=== PATIENT | male | born 1985 | race Caucasian/White ===

== ENCOUNTER → 2018-02-24 07:15 | Outpatient (CLI) | payer MEDICAID, SELFPAY ==
--- NOTE | 2018-02-24 10:25 | NEURO_ITS ---
NCS and/or EMG Patient Report Ordering Doctor: Uvaldo Edouard Chi DATE OF SERVICE: 02/24/18 This is a bilateral upper extremity nerve conduction study performed on this 32-year-old male with a history of numbness and tingling in both hands on the left side for several years. The patient is healthy otherwise. Bilateral upper extremity sensory and motor nerve conduction study was performed. The median motor and sensory distal latencies are mild to moderately prolonged somewhat worse on the left side which also demonstrates low amplitude. The amplitudes on the right side are preserved and conduction velocities are symmetrically preserved. The ulnar motor and sensory and radial sensory responses are normal. Median and ulnar F-wave latencies are unremarkable. Impression: this is an abnormal nerve conduction study of the bilateral upper extremities consistent with carpal tunnel syndrome bilaterally, mild on the ri ght, mild to moderate on the left. EMG testing was deferred due to typical electrophysiologic findings
== END ==
PROVIDERS: Family Provider Family Medicine Geriatric Medicine; PCP Family Medicine Geriatric Medicine; Visit Provider Family Medicine Geriatric Medicine
DX: R20.2 Paresthesia of skin (principal)
CPT/HCPCS: 95912

== ENCOUNTER → 2018-03-22 14:50 | Outpatient (CLI) | payer MEDICAID, SELFPAY ==
[2018-03-22 17:23] LABS: Absolute Lymphocyte Count 2.12 X10^3/ul (0.83-4.51); Absolute Neutrophil Count 4.8 X10^3/uL (2.0-7.7); Basophil# 0.02 X10^3/uL; Basophil% 0.3 % (0-1); Eosinophil# 0.26 X10^3/uL; Eosinophils% 3.3 % (0-5); Hematocrit 47.4 % (40-54); Hemoglobin 15.9 g/dl (13.0-16.5); Lymphocyte # 2.12 X10^3/ul (4.0); Lymphocyte % 26.9 % (19-41); Mean Corp Hgb Conc 33.5 g/gl (32-36); Mean Corpuscular Volume 89.4 fL (80-94); Mean Platelet Vol. 12.2 fl (6.2-12.0); Monocyte# 0.61 X10^3/uL; Monocyte% 7.8 % (0-10); Neutrophil # 4.84 X10^3/uL (2.7-7.7); Neutrophil % 61.4 % (47-70); Platelet Count 140 K/mm3 (150-450); RBC Distribution Width CV 12.7 % (11.6-14.6); RBC Distribution Width SD 41.8 fl (35.1-43.9); White Blood Count 7.9 K/mm3 (4.4-11.0)
[2018-03-22 17:24] LABS: POSITIVE COUNT NO; POSITIVE DIFFERENTIAL NO; POSITIVE MORPHOLOGY NO
[2018-03-22 17:37] LABS: ALB/GLOB Ratio 1.2 RATIO (0.9-2.4); AST(SGOT) 15 U/L (15-37); Alanine Aminotransfer ALT/SGPT 37 U/L (16-61); Albumin, Serum 4.2 g/dL (3.2-5.0); Alkaline Phosphatase 102 U/L (45-117); Anion Gap 11 (5-15); BUN 16 mg/dL (7-18); Chloride 105 mmol/L (98-107); Creatinine, Serum 1.07 mg/dL (0.70-1.30); EST Glomerular Filtration Rate 85 mL/min (>60); Est Glom Filt Rate - Afr Amer 103 mL/min (>60); Globulin 3.5 g/dL (2.2-4.2); Glucose 100 mg/dL (74-106); Potassium 3.9 mmol/L (3.5-5.1); Protein, Total 7.7 g/dL (6.4-8.2); Sodium Level 143 mmol/L (136-145); Thyroid Stim Hormone (TSH) 0.57 uIU/mL (0.358-3.74)
[2018-03-22 17:52] LABS: Vitamin D,25 Hydroxy 16.4 ng/mL (29.95-100.01)
== END ==
PROVIDERS: Family Provider Family Medicine Geriatric Medicine; PCP Family Medicine Geriatric Medicine; Visit Provider Family Medicine Geriatric Medicine
DX: E55.9 Vitamin D deficiency, unspecified (principal); R53.83 Other fatigue
CPT/HCPCS: 36415; 80053; 82306; 84443; 85025

== ENCOUNTER → 2018-06-29 16:46 | Outpatient (CLI) | payer MEDICAID, SELFPAY ==
[2016-10-17 14:09] VITALS: BMI 30.7
[2018-06-29 17:30] LABS: Absolute Lymphocyte Count 2.86 X10^3/ul (0.83-4.51); Absolute Neutrophil Count 3.2 X10^3/uL (2.0-7.7); Basophil# 0.03 X10^3/uL; Basophil% 0.4 % (0-1); Eosinophil# 0.28 X10^3/uL; Eosinophils% 4.1 % (0-5); Hematocrit 45.8 % (40-54); Hemoglobin 15.6 g/dl (13.0-16.5); Lymphocyte # 2.86 X10^3/ul (4.0); Lymphocyte % 41.7 % (19-41); Mean Corp Hgb Conc 34.1 g/gl (32-36); Mean Corpuscular Hgb 30.3 pg (27.0-32.0); Mean Corpuscular Volume 88.9 fL (80-94); Mean Platelet Vol. 10.9 fl (6.2-12.0); Monocyte# 0.44 X10^3/uL; Monocyte% 6.4 % (0-10); Neutrophil # 3.22 X10^3/uL (2.7-7.7); Platelet Count 154 K/mm3 (150-450); RBC Distribution Width CV 12.9 % (11.6-14.6); RBC Distribution Width SD 41.9 fl (35.1-43.9); Red Blood Count 5.15 M/mm3 (4.6-6.2); White Blood Count 6.9 K/mm3 (4.4-11.0)
[2018-06-29 17:35] LABS: POSITIVE COUNT NO; POSITIVE DIFFERENTIAL NO; POSITIVE MORPHOLOGY NO
[2018-06-29 18:08] LABS: Anion Gap 9 (5-15); BUN 10 mg/dL (7-18); BUN/Creat Ratio 11.4 RATIO (10-20); Chloride 107 mmol/L (98-107); Creatinine, Serum 0.88 mg/dL (0.70-1.30); EST Glomerular Filtration Rate 107 mL/min (>60); Est Glom Filt Rate - Afr Amer 130 mL/min (>60); Glucose 76 mg/dL (74-106); Sodium Level 142 mmol/L (136-145)
== END ==
PROVIDERS: Family Provider Family Medicine Geriatric Medicine; PCP Family Medicine Geriatric Medicine; Referring Provider Family Medicine Geriatric Medicine; Visit Provider Family Medicine Geriatric Medicine
DX: I10 Essential (primary) hypertension (principal); R00.0 Tachycardia, unspecified
CPT/HCPCS: 36415; 80048; 85025

== ENCOUNTER → 2019-03-23 13:02 | Outpatient (CLI) | payer MEDICAID, SELFPAY ==
[2019-03-23 17:20] LABS: Absolute Lymphocyte Count 2.54 X10^3/uL (0.83-4.51); Absolute Neutrophil Count 4.6 X10^3/uL (2.0-7.7); Basophil# 0.04 X10^3/uL; Basophil% 0.5 % (0-1); Hematocrit 47.6 % (40-54); Hemoglobin 15.9 g/dL (13.0-16.5); Lymphocyte # 2.54 X10^3/ul (4.0); Lymphocyte % 30.6 % (19-41); Mean Corp Hgb Conc 33.4 g/dL (32-36); Mean Corpuscular Hgb 29.7 pg (27.0-32.0); Mean Corpuscular Volume 88.8 fL (80-94); Mean Platelet Vol. 12.4 fl (6.2-12.0); Monocyte% 7.2 % (0-10); NRBC Flagged by Analyzer 0 % (0-5); Neutrophil # 4.57 X10^3/uL (2.7-7.7); Platelet Count 160 K/mm3 (150-450); RBC Distribution Width SD 41.9 fl (35.1-43.9); Red Blood Count 5.36 M/mm3 (4.6-6.2); White Blood Count 8.3 K/mm3 (4.4-11.0)
[2019-03-23 17:52] LABS: ALB/GLOB Ratio 1.2 RATIO (0.9-2.4); AST(SGOT) 22 U/L (15-37); Alanine Aminotransfer ALT/SGPT 42 U/L (16-61); Albumin, Serum 4.3 g/dL (3.2-5.0); Alkaline Phosphatase 93 U/L (45-117); Anion Gap 8 (5-15); BUN 11 mg/dL (7-18); BUN/Creat Ratio 11.7 RATIO (10-20); Calcium,Total 9.4 mg/dL (8.5-10.1); Chloride 106 mmol/L (98-107); Creatinine, Serum 0.94 mg/dL (0.70-1.30); EST Glomerular Filtration Rate 98 mL/min (>60); Est Glom Filt Rate - Afr Amer 119 mL/min (>60); Globulin 3.5 g/dL (2.2-4.2); Glucose 86 mg/dL (74-106); Potassium 4.1 mmol/L (3.5-5.1); Protein, Total 7.8 g/dL (6.4-8.2); Sodium Level 141 mmol/L (136-145)
== END ==
PROVIDERS: Family Provider Family Medicine Geriatric Medicine; PCP Family Medicine Geriatric Medicine; Visit Provider Family Medicine Geriatric Medicine
DX: I10 Essential (primary) hypertension (principal)
CPT/HCPCS: 36415; 80053; 84443; 85025

== ENCOUNTER → 2019-06-17 10:55 | Outpatient (CLI) | payer MEDICAID, SELFPAY ==
[2016-10-17 14:09] VITALS: BMI 30.7
[2019-06-17 12:17] LABS: Absolute Neutrophil Count 4.6 X10^3/uL (2.0-7.7); Basophil# 0.05 X10^3/uL; Basophil% 0.6 % (0-1); Eosinophil# 0.49 X10^3/uL; Eosinophils% 6.1 % (0-5); Hematocrit 50.1 % (40-54); Hemoglobin 16.7 g/dL (13.0-16.5); Lymphocyte % 27.2 % (19-41); Mean Corp Hgb Conc 33.3 g/dL (32-36); Mean Corpuscular Hgb 29.7 pg (27.0-32.0); Mean Corpuscular Volume 89.1 fL (80-94); Mean Platelet Vol. 11.6 fl (6.2-12.0); Monocyte% 8.7 % (0-10); NRBC Flagged by Analyzer 0 % (0-5); Neutrophil % 56.8 % (47-70); Platelet Count 169 K/mm3 (150-450); RBC Distribution Width CV 12.4 % (11.6-14.6); RBC Distribution Width SD 40.3 fl (35.1-43.9); Red Blood Count 5.62 M/mm3 (4.6-6.2); White Blood Count 8.1 K/mm3 (4.4-11.0)
[2019-06-17 12:40] LABS: ALB/GLOB Ratio 1.2 RATIO (0.9-2.4); AST(SGOT) 23 U/L (15-37); Alanine Aminotransfer ALT/SGPT 58 U/L (16-61); Albumin, Serum 4.1 g/dL (3.2-5.0); Alkaline Phosphatase 94 U/L (45-117); Anion Gap 5 (5-15); BUN 13 mg/dL (7-18); BUN/Creat Ratio 12.6 RATIO (10-20); Calcium,Total 9.4 mg/dL (8.5-10.1); Chloride 108 mmol/L (98-107); Creatinine, Serum 1.03 mg/dL (0.70-1.30); EST Glomerular Filtration Rate 89 mL/min (>60); Est Glom Filt Rate - Afr Amer 107 mL/min (>60); Globulin 3.5 g/dL (2.2-4.2); Glucose 103 mg/dL (74-106); Potassium 4.2 mmol/L (3.5-5.1); Protein, Total 7.6 g/dL (6.4-8.2); Sodium Level 140 mmol/L (136-145); Thyroid Stim Hormone (TSH) 0.56 uIU/mL (0.358-3.74)
== END ==
LOC: POLAB3 10:57
PROVIDERS: PCP Family Medicine Geriatric Medicine; Visit Provider Family Medicine Geriatric Medicine
DX: R53.83 Other fatigue (principal)
CPT/HCPCS: 36415; 80053; 84443; 85025

== ENCOUNTER → 2019-12-08 17:57 | Outpatient (CLI) | payer MEDICAID, SELFPAY | PROVIDERS: PCP Family Medicine Geriatric Medicine | DX: Z20.828 Contact with and (suspected) exposure to other viral communicable diseases (principal) | CPT/HCPCS: 87635; G2023; U0003 ==

== ENCOUNTER → 2020-03-26 13:24 | Outpatient (CLI) | payer MEDICAID, SELFPAY ==
[2016-10-17 14:09] VITALS: BMI 30.7
[2020-03-26 17:00] LABS: Absolute Lymphocyte Count 2.74 X10^3/uL (0.83-4.51); Absolute Neutrophil Count 5.4 X10^3/uL (2.0-7.7); Basophil# 0.08 X10^3/uL; Basophil% 0.9 % (0-1); Eosinophil# 0.24 X10^3/uL; Eosinophils% 2.6 % (0-5); Hematocrit 49.1 % (40-54); Hemoglobin 15.9 g/dL (13.0-16.5); Lymphocyte # 2.74 X10^3/ul (4.0); Lymphocyte % 29.9 % (19-41); Mean Corp Hgb Conc 32.4 g/dL (32-36); Mean Corpuscular Hgb 29.4 pg (27.0-32.0); Mean Corpuscular Volume 90.8 fL (80-94); Mean Platelet Vol. 11.9 fl (6.2-12.0); Monocyte% 7.6 % (0-10); NRBC Flagged by Analyzer 0 % (0-5); Neutrophil # 5.37 X10^3/uL (2.7-7.7); Neutrophil % 58.7 % (47-70); Platelet Count 223 K/mm3 (150-450); RBC Distribution Width CV 12.3 % (11.6-14.6); RBC Distribution Width SD 40.8 fl (35.1-43.9); Red Blood Count 5.41 M/mm3 (4.6-6.2); White Blood Count 9.2 K/mm3 (4.4-11.0)
[2020-03-26 17:21] LABS: ALB/GLOB Ratio 1.2 RATIO (0.9-2.4); AST(SGOT) 31 U/L (15-37); Alanine Aminotransfer ALT/SGPT 65 U/L (16-61); Albumin, Serum 4.4 g/dL (3.2-5.0); Alkaline Phosphatase 106 U/L (45-117); Anion Gap 9 (5-15); BUN 22 mg/dL (7-18); BUN/Creat Ratio 15.6 RATIO (10-20); Calcium,Total 9.7 mg/dL (8.5-10.1); Chloride 103 mmol/L (98-107); Creatinine, Serum 1.41 mg/dL (0.70-1.30); EST Glomerular Filtration Rate 61 mL/min (>60); Est Glom Filt Rate - Afr Amer 74 mL/min (>60); Globulin 3.8 g/dL (2.2-4.2); Glucose 75 mg/dL (74-106); Potassium 3.7 mmol/L (3.5-5.1); Protein, Total 8.2 g/dL (6.4-8.2); Sodium Level 136 mmol/L (136-145); Thyroid Stim Hormone (TSH) 0.49 uIU/mL (0.358-3.74)
== END ==
PROVIDERS: PCP Family Medicine Geriatric Medicine; Visit Provider Family Medicine Geriatric Medicine
DX: R53.83 Other fatigue (principal)
CPT/HCPCS: 36415; 80053; 84443; 85025

== ENCOUNTER → 2020-03-27 10:20 | Outpatient (CLI) | payer MEDICAID, SELFPAY | PROVIDERS: PCP Family Medicine Geriatric Medicine; Referring Provider Family Medicine Geriatric Medicine; Visit Provider Family Medicine Geriatric Medicine | DX: R06.89 Other abnormalities of breathing (principal) | CPT/HCPCS: 87633; 87635; C9803; U0003 ==

== ENCOUNTER 2020-04-16 18:07 | Emergency (ER) | payer MEDICAID, SELFPAY ==
[2020-04-16 18:08] VITALS: BP 129/81; PULSE 97; RESP 16; TEMP 36.6; O2SAT 99; BMI 31.9
--- NOTE | 2020-04-16 18:52 | CT_ITS ---
HISTORY: FELL 2 DAYS AGO AND HIT HEAD, NO LOC COMPARISON: None. TECHNIQUE: Helical CT axial images are obtained from the base of skull through the vertex without IV contrast. Multiplanar reconstruction. A radiation dose optimization technique was used for this scan. # of images incl. paperwork: [id number] FINDINGS: BRAIN: No parenchymal hemorrhage, infarct, intra-axial mass, mass effect, or midline shift. No abnormal extra-axial fluid collections. VENTRICLES: Ventricles are normal in size and configuration. No hydrocephalus. CALVARIUM: Bone windows show no skull fracture or calvarial lesions. PARANASAL SINUSES AND MASTOIDS: Visualized paranasal sinuses are clear. Mastoid air cells are clear. CT/Brain/Head without Contrast IMPRESSION: 1. Negative noncontrast CT examination of brain. Individualized dose optimization techniques were used for this CT. at 1958 Reported and signed by: Twin Marquez MD Electronically Signed: Twin Marquez MD at 19:57 EST Tel , Service support ,
--- NOTE | 2020-04-16 18:53 | ED.DCSUM_ITS ---
History of Present Illness Chief Complaint: Fall Informant: Patient, - - [facility] staff member Onset: Days Current Severity: Mild Maximum Severity: Mild Narrative: Patient presents after falling and striking his head 2 days ago. He lives in a nursing home. Staff member that is here with him today was not present at the time of his fall. He states he was on the porch visiting with a friend. He fell and struck the back of his head. He thinks he may have gotten dizzy but is not sure. He has had no nausea and vomiting. He states his head feels swimmy. - Past Medical History (1) Anxiety and depression Status: Chronic Past Medical History - Allergies and Home Meds Allergies/Adverse Reactions: Allergies No Known Allergies Allergy (Verified 04/16/20 18:10) Primary Care Physician: Uvaldo Edouard Chi, MD [Primary Care Provider] - [facility]: - - [facility] Smoking Status: Never smoker Review of Systems General: Denies: Chills, Fever Eyes: Denies: Visual changes - bilaterally ENT: Denies: Bilateral ear pain Cardiovascular: Denies: Chest pain Respiratory: Denies: Dyspnea, Cough Gastrointestinal: Denies: Abdominal pain, Nausea, Vomiting Musculoskeletal: Denies: Extremity Pain Skin: Denies: Rash Neurological: Reports: Headache Hematologic: Denies: Easy bruising, Easy bleeding Allergy: Denies: Uticaria Physical Exam Vital Signs/Narrative: Vital Signs Temp Pulse Resp BP Pulse Ox 04/16/20 18:08 97.9 F 97 16 129/81 H 99 Inital Vital Signs reviewed: Yes General: Well nourished, Well developed Head: Normocephalic ENT: Moist mucous membranes Neck: Supple Cardiovascular: Regular rate, Regular rhythm Respiratory: No distress, CTA bilaterally Abdomen: Soft, Nontender Back: Nontender - No midline or paraspinal muscle tenderness. Extremities: Nontender Skin: Normal color Neurological: Alert, Oriented x3, Normal Strength, Normal Sensation Psychological: Normal affect Diagnostic/Tx/Re-eval Impressions Brain CT 04/16/20 18:52 IMPRESSION: 1. Negative noncontrast CT examination of brain. Individualized dose optimization techniques were used for this CT. at 1958 Reported and signed by: Twin Marquez MD Electronically Signed: Twin Marquez MD at 19:57 EST Tel , Service support , 04/16/20 18:52 CT Head [Brain/Head without Contrast] [CT] Stat - Medical Decision Making Head CT is unremarkable. Patient will be given instructions for closed head injury. Staff at the nursing home will be made aware as well. ED Disposition - Plan for ED Patient: Disposition: Home or Assisted Living Diagnosis: Closed head injury Instructions: ED Head Injury Adult Referrals: Uvaldo Edouard Chi, MD [Primary Care Provider] - 1 Week if not improving
[2020-04-16 20:43] VITALS: BP 120/64; PULSE 82; RESP 16
== END 2020-04-16 20:43 | disposition home or self-care (01) ==
PROVIDERS: Emergency Provider Emergency Medicine; PCP Family Medicine Geriatric Medicine
DX: S09.90XA Unspecified injury of head, initial encounter (principal); F32.9 Major depressive disorder, single episode, unspecified; W19.XXXA Unspecified fall, initial encounter
CPT/HCPCS: 70450; 99282

== ENCOUNTER → 2021-04-02 13:55 | Outpatient (CLI) | payer MEDICAID, SELFPAY ==
[2021-04-02 16:13] LABS: Absolute Lymphocyte Count 2.29 X10^3/uL (0.83-4.51); Absolute Neutrophil Count 4.3 X10^3/uL (2.0-7.7); Basophil# 0.06 X10^3/uL; Basophil% 0.8 % (0-1); Eosinophil# 0.39 X10^3/uL; Eosinophils% 5.1 % (0-5); Hematocrit 45.2 % (40-54); Lymphocyte # 2.29 X10^3/ul (0.83-4.51); Lymphocyte % 29.9 % (19-41); Mean Corp Hgb Conc 33.2 g/dL (32-36); Mean Corpuscular Hgb 29.9 pg (27.0-32.0); Mean Platelet Vol. 11.6 fl (6.2-12.0); Monocyte# 0.59 X10^3/uL; Monocyte% 7.7 % (0-10); NRBC Flagged by Analyzer 0 % (0-5); Neutrophil # 4.27 X10^3/uL (2.7-7.7); Neutrophil % 55.8 % (47-70); Platelet Count 192 K/mm3 (150-450); RBC Distribution Width CV 12.6 % (11.6-14.6); RBC Distribution Width SD 41.4 fl (35.1-43.9); Red Blood Count 5.02 M/mm3 (4.6-6.2); White Blood Count 7.7 K/mm3 (4.4-11.0)
[2021-04-02 16:37] LABS: ALB/GLOB Ratio 1.1 RATIO (0.9-2.4); AST(SGOT) 47 U/L (15-37); Alanine Aminotransfer ALT/SGPT 122 U/L (16-61); Alkaline Phosphatase 105 U/L (45-117); Anion Gap 5 (5-15); BUN 24 mg/dL (7-18); BUN/Creat Ratio 18.8 RATIO (10-20); Calcium,Total 9.4 mg/dL (8.5-10.1); Chloride 105 mmol/L (98-107); Creatinine, Serum 1.28 mg/dL (0.70-1.30); EST Glomerular Filtration Rate 68 mL/min (>60); Est Glom Filt Rate - Afr Amer 82 mL/min (>60); Globulin 3.6 g/dL (2.2-4.2); Glucose 91 mg/dL (74-106); Potassium 3.8 mmol/L (3.5-5.1); Protein, Total 7.6 g/dL (6.4-8.2); Sodium Level 139 mmol/L (136-145); Thyroid Stim Hormone (TSH) 0.36 uIU/mL (0.358-3.74)
== END ==
PROVIDERS: PCP Family Medicine Geriatric Medicine; Visit Provider Family Medicine Geriatric Medicine
DX: I10 Essential (primary) hypertension (principal)
CPT/HCPCS: 36415; 80053; 84443; 85025

== ENCOUNTER → 2021-04-22 16:39 | Outpatient (CLI) | payer MEDICAID, SELFPAY ==
[2021-04-23 08:57] LABS: Hepatitis B Surface Antibody Non-Reactive; Hepatitis C Antibody Non-Reactive (Nonreactive)
[2021-04-24 14:21] LABS: Hepatitis A AB, Total Positive (Negative)
== END ==
PROVIDERS: PCP Family Medicine Geriatric Medicine; Visit Provider Family Medicine Geriatric Medicine
DX: R74.8 Abnormal levels of other serum enzymes (principal)
CPT/HCPCS: 36415; 86706; 86708; 86803

== ENCOUNTER → 2021-04-29 15:57 | Outpatient (CLI) | payer MEDICAID, SELFPAY ==
[2021-04-29 16:55] LABS: ALB/GLOB Ratio 1.1 RATIO (0.9-2.4); AST(SGOT) 40 U/L (15-37); Alanine Aminotransfer ALT/SGPT 101 U/L (16-61); Albumin, Serum 3.9 g/dL (3.2-5.0); Alkaline Phosphatase 97 U/L (45-117); Anion Gap 8 (5-15); BUN 17 mg/dL (7-18); BUN/Creat Ratio 16.7 RATIO (10-20); Calcium,Total 9.4 mg/dL (8.5-10.1); Chloride 107 mmol/L (98-107); Creatinine, Serum 1.02 mg/dL (0.70-1.30); EST Glomerular Filtration Rate 89 mL/min (>60); Est Glom Filt Rate - Afr Amer 107 mL/min (>60); Globulin 3.4 g/dL (2.2-4.2); Glucose 96 mg/dL (74-106); Potassium 4.1 mmol/L (3.5-5.1); Protein, Total 7.3 g/dL (6.4-8.2); Sodium Level 139 mmol/L (136-145)
== END ==
PROVIDERS: PCP Family Medicine Geriatric Medicine; Visit Provider Family Medicine Geriatric Medicine
DX: R53.83 Other fatigue (principal)
CPT/HCPCS: 36415; 80053

== ENCOUNTER → 2021-05-09 08:43 | Outpatient (CLI) | payer MEDICAID, SELFPAY ==
--- NOTE | 2021-05-09 08:53 | US_ITS ---
STUDY: ABDOMINAL ULTRASOUND - RIGHT UPPER QUADRANT REASON FOR VISIT: Male, 35 years old HEP A . Abnormal liver enzymes. TECHNIQUE: Ultrasound evaluation of the right upper quadrant was performed with real-time and static lozano-scale imaging. TECHNICAL QUALITY: Limited. Examination limited by bowel gas. COMPARISON: None. FINDINGS: Liver: The liver measures 15.5 cm. There is increased echogenicity consistent with fatty infiltration. The bile ducts are within normal limits. There is hepatic color flow. The direction of portal flow is hepatopetal. There is no demonstrated mass lesion. Gallbladder: Normal distended gallbladder. The gallbladder wall measures 1.7 mm. There is a negative sonographic Johnson''s sign. There is no pericholecystic fluid. There are no gallstones. Common Bile Duct (C.B.D.): The common bile duct measures 2.5 mm. Pancreas: There is nonvisualization of the pancreas due to overlying bowel gas. Right Kidney: Normal size of the right kidney. The right kidney measures 10 cm x 5.5 cm x 5.8 cm. Normal renal cortex. The right cortex measures 1.8 cm. There is no demonstrated renal mass or cyst. There is no right hydronephrosis. US/Abdomen Limited IMPRESSION: Fatty infiltration of the liver. Electronically Signed: Juan M Montanez MD at 12:15 EST , Service support ,
== END ==
PROVIDERS: PCP Family Medicine Geriatric Medicine; Referring Provider Family Medicine Geriatric Medicine; Visit Provider Family Medicine Geriatric Medicine
DX: B15.9 Hepatitis A without hepatic coma (principal)
CPT/HCPCS: 76705

== ENCOUNTER 2021-05-30 08:41 | Outpatient (CLI) | payer MEDICAID, SELFPAY ==
--- NOTE | 2021-05-30 08:43 | US_ITS ---
STUDY: ABDOMINAL ULTRASOUND - ELASTOGRAPHY REASON FOR VISIT: Male, 35 years old. Fatty infiltration of the liver. TECHNIQUE: Liver stiffness measurements were obtained on a [employer] RS 85 ultrasound machine using a CA 1-7 probe following the SRU guidelines. 3 measurements were obtained using a 2-D-SWE method. The IQR/M was 21% suggesting a quality data set. TECHNICAL QUALITY: Adequate. COMPARISON: Comparison is made with prior examination dated 05/09/2021. FINDINGS: Liver: There is evidence of a fatty infiltration of the liver. Median liver stiffness measured 12 kPa. US/Elastography Parenchyma/Organ IMPRESSION: Liver stiffness measures 12 kPa compatible with F3 Metavir score. Electronically Signed: Juan M Montanez MD at 9:23 EST , Service support ,
== END 2021-05-30 23:59 | disposition short-term general hospital (02) ==
LOC: US 08:43
PROVIDERS: PCP Family Medicine Geriatric Medicine; Referring Provider Family Medicine Geriatric Medicine; Visit Provider Family Medicine Geriatric Medicine
DX: K76.0 Fatty (change of) liver, not elsewhere classified (principal)
CPT/HCPCS: 76981

== ENCOUNTER 2021-07-01 14:03 | Outpatient (CLI) | payer MEDICAID, SELFPAY ==
[2021-07-01 16:11] LABS: ALB/GLOB Ratio 1.1 RATIO (0.9-2.4); AST(SGOT) 59 U/L (15-37); Alanine Aminotransfer ALT/SGPT 149 U/L (16-61); Albumin, Serum 4.1 g/dL (3.2-5.0); Alkaline Phosphatase 114 U/L (45-117); Anion Gap 3 (5-15); BUN 19 mg/dL (7-18); BUN/Creat Ratio 17.3 RATIO (10-20); Calcium,Total 9.9 mg/dL (8.5-10.1); Chloride 108 mmol/L (98-107); EST Glomerular Filtration Rate 81 mL/min (>60); Est Glom Filt Rate - Afr Amer 98 mL/min (>60); Globulin 3.7 g/dL (2.2-4.2); Glucose 88 mg/dL (74-106); Potassium 4.8 mmol/L (3.5-5.1); Protein, Total 7.8 g/dL (6.4-8.2); Sodium Level 140 mmol/L (136-145)
== END 2021-07-01 23:59 | disposition home or self-care (01) ==
LOC: POLAB3 14:05
PROVIDERS: PCP Family Medicine Geriatric Medicine; Visit Provider Family Medicine Geriatric Medicine
DX: K76.9 Liver disease, unspecified (principal)
CPT/HCPCS: 36415; 80053

== ENCOUNTER → 2022-04-22 | Outpatient (CLI) | payer MEDICAID, SELFPAY ==
[2022-04-22 14:35] LABS: Absolute Lymphocyte Count 2.52 X10^3/uL (0.83-4.51); Absolute Neutrophil Count 6.7 X10^3/uL (2.0-7.7); Basophil# 0.07 X10^3/uL; Basophil% 0.6 % (0-1); Eosinophil# 0.46 X10^3/uL; Eosinophils% 4.2 % (0-5); Hematocrit 51.2 % (40-54); Hemoglobin 17.3 g/dL (13.0-16.5); Lymphocyte # 2.52 X10^3/ul (0.83-4.51); Lymphocyte % 23.2 % (19-41); Mean Corp Hgb Conc 33.8 g/dL (32-36); Mean Corpuscular Hgb 30.5 pg (27.0-32.0); Mean Corpuscular Volume 90.3 fL (80-94); Mean Platelet Vol. 12.4 fl (6.2-12.0); Monocyte# 1.02 X10^3/uL; Monocyte% 9.4 % (0-10); NRBC Flagged by Analyzer 0 % (0-5); Neutrophil # 6.72 X10^3/uL (2.7-7.7); Neutrophil % 62.1 % (47-70); Platelet Count 166 K/mm3 (150-450); RBC Distribution Width CV 12.6 % (11.6-14.6); RBC Distribution Width SD 41.4 fl (35.1-43.9); Red Blood Count 5.67 M/mm3 (4.6-6.2); White Blood Count 10.8 K/mm3 (4.4-11.0)
[2022-04-22 15:13] LABS: ALB/GLOB Ratio 1.1 RATIO (0.9-2.4); AST(SGOT) 38 U/L (15-37); Alanine Aminotransfer ALT/SGPT 79 U/L (16-61); Albumin, Serum 4.1 g/dL (3.2-5.0); Alkaline Phosphatase 124 U/L (45-117); Anion Gap 3 (5-15); BUN 21 mg/dL (7-18); BUN/Creat Ratio 19.8 RATIO (10-20); Calcium,Total 9.6 mg/dL (8.5-10.1); Chloride 106 mmol/L (98-107); Creatinine, Serum 1.06 mg/dL (0.70-1.30); EST Glomerular Filtration Rate 84 mL/min (>60); Est Glom Filt Rate - Afr Amer 102 mL/min (>60); Globulin 3.7 g/dL (2.2-4.2); Glucose 62 mg/dL (74-106); Potassium 3.7 mmol/L (3.5-5.1); Protein, Total 7.8 g/dL (6.4-8.2); Sodium Level 142 mmol/L (136-145); Thyroid Stim Hormone (TSH) 0.55 uIU/mL (0.358-3.74)
== END | disposition home or self-care (01) ==
LOC: POLAB3 13:02
PROVIDERS: PCP Family Medicine Geriatric Medicine; Visit Provider Family Medicine Geriatric Medicine
DX: R53.83 Other fatigue (principal)
CPT/HCPCS: 36415; 80053; 84443; 85025

== ENCOUNTER → 2022-08-21 | Outpatient (CLI) | payer MEDICAID, SELFPAY ==
[2022-08-21 16:09] LABS: Absolute Lymphocyte Count 2.61 X10^3/uL (0.83-4.51); Absolute Neutrophil Count 4.2 X10^3/uL (2.0-7.7); Basophil# 0.07 X10^3/uL; Basophil% 0.9 % (0-1); Eosinophil# 0.42 X10^3/uL; Eosinophils% 5.2 % (0-5); Hematocrit 50.1 % (40-54); Hemoglobin 16.6 g/dL (13.0-16.5); Lymphocyte # 2.61 X10^3/ul (0.83-4.51); Lymphocyte % 32.1 % (19-41); Mean Corp Hgb Conc 33.1 g/dL (32-36); Mean Corpuscular Hgb 30.2 pg (27.0-32.0); Mean Corpuscular Volume 91.1 fL (80-94); Mean Platelet Vol. 11.2 fl (6.2-12.0); Monocyte# 0.76 X10^3/uL; Monocyte% 9.4 % (0-10); NRBC Flagged by Analyzer 0 % (0-5); Neutrophil % 51.7 % (47-70); Platelet Count 170 K/mm3 (150-450); RBC Distribution Width SD 43.7 fl (35.1-43.9); White Blood Count 8.1 K/mm3 (4.4-11.0)
[2022-08-21 16:46] LABS: ALB/GLOB Ratio 1.2 RATIO (0.9-2.4); AST(SGOT) 32 U/L (15-37); Alanine Aminotransfer ALT/SGPT 54 U/L (16-61); Alkaline Phosphatase 112 U/L (45-117); Anion Gap 3 (5-15); BUN 19 mg/dL (7-18); BUN/Creat Ratio 16.4 RATIO (10-20); Calcium,Total 9.4 mg/dL (8.5-10.1); Chloride 108 mmol/L (98-107); Cholesterol 151 mg/dL (200); Creatinine, Serum 1.16 mg/dL (0.70-1.30); EST Glomerular Filtration Rate 76 mL/min (>60); Est Glom Filt Rate - Afr Amer 92 mL/min (>60); Globulin 3.4 g/dL (2.2-4.2); Glucose 76 mg/dL (74-106); High Density Lipoprotein 25 mg/dL; Potassium 3.9 mmol/L (3.5-5.1); Protein, Total 7.4 g/dL (6.4-8.2); Sodium Level 140 mmol/L (136-145); Triglycerides 213 mg/dL; Very Low Density Lipoprotein 43 mg/dL (5-40)
== END | disposition home or self-care (01) ==
LOC: LAB 14:36
PROVIDERS: PCP Family Medicine Geriatric Medicine; Referring Provider Psychiatry & Neurology Child & Adolescent Psychiatry; Visit Provider Psychiatry & Neurology Child & Adolescent Psychiatry
DX: Z79.899 Other long term (current) drug therapy (principal)
CPT/HCPCS: 36415; 80053; 80061; 85025

== ENCOUNTER → 2023-04-22 | Outpatient (CLI) | payer MEDICAID, SELFPAY ==
[2023-04-22 14:20] LABS: Absolute Lymphocyte Count 2.34 X10^3/uL (0.83-4.51); Absolute Neutrophil Count 4.7 X10^3/uL (2.0-7.7); Basophil# 0.07 X10^3/uL; Basophil% 0.8 % (0-1); Eosinophil# 0.43 X10^3/uL; Eosinophils% 5.2 % (0-5); Hematocrit 53.4 % (40-54); Hemoglobin 17.4 g/dL (13.0-16.5); Lymphocyte # 2.34 X10^3/ul (0.83-4.51); Lymphocyte % 28.4 % (19-41); Mean Corp Hgb Conc 32.6 g/dL (32-36); Mean Corpuscular Hgb 29.6 pg (27.0-32.0); Mean Corpuscular Volume 90.8 fL (80-94); Monocyte# 0.69 X10^3/uL; Monocyte% 8.4 % (0-10); NRBC Flagged by Analyzer 0 % (0-5); Neutrophil # 4.66 X10^3/uL (2.7-7.7); Neutrophil % 56.6 % (47-70); Platelet Count 152 K/mm3 (150-450); RBC Distribution Width SD 43.1 fl (35.1-43.9); Red Blood Count 5.88 M/mm3 (4.6-6.2); White Blood Count 8.2 K/mm3 (4.4-11.0)
[2023-04-22 14:41] LABS: AST(SGOT) 23 U/L (15-37); Alanine Aminotransfer ALT/SGPT 41 U/L (16-61); Albumin, Serum 3.7 g/dL (3.2-5.0); Alkaline Phosphatase 113 U/L (45-117); Anion Gap 2 (5-15); BUN 19 mg/dL (7-18); BUN/Creat Ratio 15.2 RATIO (10-20); Calcium,Total 8.6 mg/dL (8.5-10.1); Chloride 107 mmol/L (98-107); Cholesterol 143 mg/dL (200); Creatinine, Serum 1.25 mg/dL (0.70-1.30); EST Glomerular Filtration Rate 69 mL/min (>60); Est Glom Filt Rate - Afr Amer 84 mL/min (>60); Globulin 3.6 g/dL (2.2-4.2); Glucose 94 mg/dL (74-106); High Density Lipoprotein 19 mg/dL; Potassium 4.2 mmol/L (3.5-5.1); Protein, Total 7.3 g/dL (6.4-8.2); Sodium Level 140 mmol/L (136-145); Thyroid Stim Hormone (TSH) 0.65 uIU/mL (0.358-3.74); Triglycerides 484 mg/dL
== END | disposition home or self-care (01) ==
LOC: POLAB3 13:02
PROVIDERS: PCP Family Medicine Geriatric Medicine; Visit Provider Family Medicine Geriatric Medicine
DX: I10 Essential (primary) hypertension (principal)
CPT/HCPCS: 36415; 80053; 80061; 84443; 85025

== ENCOUNTER → 2024-04-29 | Outpatient (CLI) | payer MEDICAID, SELFPAY ==
[2024-04-29 10:35] LABS: Absolute Lymphocyte Count 2.29 X10^3/uL (0.83-4.51); Basophil# 0.08 X10^3/uL; Eosinophil# 0.46 X10^3/uL; Hematocrit 51.7 % (40-54); Lymphocyte # 2.29 X10^3/ul (0.83-4.51); Lymphocyte % 29.7 % (19-41); Mean Corp Hgb Conc 32.9 g/dL (32-36); Mean Corpuscular Hgb 30.6 pg (27.0-32.0); Mean Corpuscular Volume 93.2 fL (80-94); Mean Platelet Vol. 11.3 fl (6.2-12.0); Monocyte# 0.78 X10^3/uL; Monocyte% 10.1 % (0-10); NRBC Flagged by Analyzer 0 % (0-5); Neutrophil # 4.04 X10^3/uL (2.7-7.7); Neutrophil % 52.4 % (47-70); Platelet Count 126 K/mm3 (150-450); RBC Distribution Width SD 44.4 fl (35.1-43.9); Red Blood Count 5.55 M/mm3 (4.6-6.2); White Blood Count 7.7 K/mm3 (4.4-11.0)
[2024-04-29 11:36] LABS: ALB/GLOB Ratio 1.2 RATIO (0.9-2.4); AST(SGOT) 26 U/L (15-37); Alanine Aminotransfer ALT/SGPT 61 U/L (16-61); Albumin, Serum 3.8 g/dL (3.2-5.0); Alkaline Phosphatase 98 U/L (45-117); Anion Gap 2 (5-15); BUN 13 mg/dL (7-18); BUN/Creat Ratio 11.7 RATIO (10-20); Calcium,Total 9.2 mg/dL (8.5-10.1); Chloride 107 mmol/L (98-107); Cholesterol 144 mg/dL (200); Creatinine, Serum 1.11 mg/dL (0.70-1.30); EST Glomerular Filtration Rate 79 mL/min (>60); Est Glom Filt Rate - Afr Amer 96 mL/min (>60); Globulin 3.1 g/dL (2.2-4.2); Glucose 82 mg/dL (74-106); High Density Lipoprotein 20 mg/dL; Potassium 4.2 mmol/L (3.5-5.1); Protein, Total 6.9 g/dL (6.4-8.2); Sodium Level 140 mmol/L (136-145); Thyroid Stim Hormone (TSH) 0.559 uIU/mL (0.358-3.740); Triglycerides 173 mg/dL; Very Low Density Lipoprotein 35 mg/dL (5-40)
== END | disposition home or self-care (01) ==
PROVIDERS: PCP Family Medicine Geriatric Medicine; Referring Provider Family Medicine Geriatric Medicine; Visit Provider Family Medicine Geriatric Medicine
DX: I10 Essential (primary) hypertension (principal); E78.5 Hyperlipidemia, unspecified
CPT/HCPCS: 36415; 80053; 80061; 84443; 85025

== ENCOUNTER → 2024-06-03 | Outpatient (CLI) | payer MEDICAID, SELFPAY ==
--- NOTE | 2024-06-03 08:23 | US_ITS ---
STUDY: ABDOMINAL ULTRASOUND - RIGHT UPPER QUADRANT; ELASTOGRAPHY REASON FOR VISIT: Male, 38 years old. Cirrhosis. TECHNIQUE: Ultrasound evaluation of the right upper quadrant was performed with real-time and static lozano-scale imaging. Point quantification shear wave elastography was performed (STYLIGHT). TECHNICAL QUALITY: Adequate. COMPARISON: Comparison is made with prior study dated May 09, 2021. FINDINGS: Liver: The liver is enlarged measures 19.4 cm. There is normal echogenicity of the liver. The bile ducts are within normal limits. There is hepatic color flow. The direction of portal flow is hepatopetal. There is no demonstrated mass lesion. Median liver stiffness measured 7 kPa. Gallbladder: Normal distended gallbladder. The gallbladder wall measures 2.0 mm. There is a negative sonographic Johnson''s sign. There is no pericholecystic fluid. There are no gallstones. Common Bile Duct (C.B.D.): The common bile duct was not visualized due to overlying bowel gas. Pancreas: There is normal echogenicity of the visualized pancreas. There is no demonstrated pancreatic mass or cyst. Right Kidney: Normal size of the right kidney. The right kidney measures 10.1 cm x 5.1cm x 5.3 cm. Normal renal cortex. The right cortex measures 2.0 cm. There is no demonstrated renal mass or cyst. There is no right hydronephrosis. US/ABD Limited w/ Elastography IMPRESSION: 1. Liver stiffness measures 7 kPa compatible with F2-F3 (Mild to moderate liver fibrosis) Metavir score. Electronically Signed: Juan M Montanez MD at 13:34 EST ,
== END | disposition home or self-care (01) ==
LOC: US 08:19
PROVIDERS: PCP Family Medicine Geriatric Medicine; Referring Provider Family Medicine Geriatric Medicine; Visit Provider Family Medicine Geriatric Medicine
DX: K74.69 Other cirrhosis of liver (principal)
CPT/HCPCS: 76705; 76981

== ENCOUNTER → 2024-06-16 | Outpatient (CLI) | payer MEDICAID, SELFPAY | END | disposition home or self-care (01) | LOC: SL 19:54 | PROVIDERS: PCP Family Medicine Geriatric Medicine; Referring Provider Family Medicine Geriatric Medicine; Visit Provider Family Medicine Geriatric Medicine | DX: G47.13 Recurrent hypersomnia (principal); R06.83 Snoring ==

== ENCOUNTER → 2024-08-18 | Outpatient (CLI) | payer MEDICAID, SELFPAY ==
[2024-08-18] MEDS: Zaleplon 5 MG Capsule 10 MG PO (21:10)
== END | disposition home or self-care (01) ==
LOC: SL 20:05
PROVIDERS: PCP Family Medicine Geriatric Medicine; Referring Provider Nurse Practitioner Family; Visit Provider Nurse Practitioner Family
DX: G47.33 Obstructive sleep apnea (adult) (pediatric) (principal)
CPT/HCPCS: 95811

== ENCOUNTER 2024-12-21 14:42 | Emergency (ER) | payer MEDICAID, SELFPAY ==
[2024-12-21 14:43] VITALS: BP 161/95; PULSE 80; RESP 16; TEMP 36.7; O2SAT 97; BMI 40.9
--- NOTE | 2024-12-21 15:05 | ED.RN ---
Pt. has a legal guardian Shabana Mott, this RN called for consent to treat and spoke with a Glenis Berger as shabana is not on duty today. This RN explained incidient and what is treatment and she gave consent to treat.
[2024-12-21] MEDS: Lidocaine 1% /Epi 1:100 (20ml) 20 ML Vial INFILT (15:18)
[2024-12-21 15:22] VITALS: BP 142/79; PULSE 82; RESP 17; TEMP 36.6; O2SAT 100
--- NOTE | 2024-12-21 15:22 | EDS_ITS ---
HPI History of Present Illness Chief Complaint: Bite Narrative Narrative: Chief complaint and HPI: Left hand dog bite. 39-year-old male with past medical history of autism, anxiety, depression presents for evaluation of dog bite to the left hand. Dog belonged to a friend. Dog is believed to be vaccinated. Denies any pain to the hand. Unknown tetanus. Patient has a guardian. Denies injury elsewhere. Review of systems: See HPI Medications: As listed on the chart Allergies: As listed on the chart PFSH: Per chart Vital signs: As listed on the chart. Reviewed. Physical exam: Gen: A&O x3, NAD Head: Normocephalic, atraumatic Eyes: No sclera icterus, conjunctiva clear ENT: Moist mucous membranes CV: Regular rate Resp: Nonlabored respiration Musc: Full ROM of the left upper extremity including wrist/hand/fingers, radial pulse +2, good capillary refill, sensation intact, compartments soft, 2 cm V- shaped laceration to the dorsal aspect of the middle left hand-subcutaneous fat visualized Skin: Warm, dry Neuro: Alert, oriented, grossly intact, sensation intact Psych: Cooperative, appropriate mood and affect [facility] Medical History Other cirrhosis of liver Leg cramp Snoring Other hyperlipidemia GERD (gastroesophageal reflux disease) BMI 40.0-44.9, adult AA (alcohol abuse) Fatty liver Other fatigue Alcohol use Major depressive disorder, recurrent episode, in full remission Recurrent hypersomnia Hepatic fibrosis Essential (primary) hypertension Hyperlipidemia ADHD BMI 45.0-49.9, adult Contact with and (suspected) exposure to other viral communicable diseases URI (upper respiratory infection) Home Medications ?Medication ?Instructions ?Recorded ?Last Taken ?Type sertraline 100 mg tablet (Zoloft) 100 mg PO DAILY 11/0805/30/16 History metoprolol tartrate 75 mg tablet 75 mg PO BID 07/29/24 Unknown History tirzepatide (weight loss) 2.5 2.5 mg subcut QWEEK 12/16 Unknown History mg/0.5 mL subcutaneous pen injector (Zepbound) methylphenidate HCl 40 mg biphasic 40 mg PO DAILY 10/24 Unknown History 50-50 capsule,extended release (Ritalin LA) methylphenidate HCl 54 mg 54 mg PO QAM 11/11/24 Unknow n History tablet,extended release 24 hr amoxicillin 875 mg-potassium 1 tab PO BID 7 days #14 t abs 12/21/24 Unknown Rx clavulanate 125 mg tablet Allergy/AdvReac Type Severity Reaction Status Date / Time No Known Allergies Allergy Verified 12/21/24 14:43 Family History Mother Sleep apnea Surgical History History of appendectomy Social History Smoking Status: Never smoker alcohol intake: current alcohol intake frequency: holidays/special occasions only EXAM Physical Exam Const Vital Signs: 12/21/24 14:43 Temperature 98.1 F Temperature Source Oral Pulse Rate 80 Respiratory Rate 16 Blood Pressure 161/95 H Blood Pressure Mean 117 Pulse Ox 97 Oxygen Delivery Method Room Air MDM MDM MDM Narrative Medical decision making narrative: 39-year-old male with past medical history of autism, anxiety, depression presents for evaluation of dog bite to the left hand. Dog belonged to a friend. Dog is believed to be vaccinated. Denies any pain to the hand. Unknown tetanus. Patient has a guardian. We were unable to contact the guardian however we did get consent from the alf to treat the patient. He consented as well. Tetanus updated. Laceration was repaired and patient tolerated this well. Given patient has no pain or deformity to the hand, I do not think any x-rays are needed. Patient was given education on monitoring for signs of infection and suture remover. Will be placed on Augmentin for antibiotic prophylaxis. He confirmed understanding of the plan. Laceration Repair Indication: Laceration Location: 2 cm V-shaped laceration to the left hand Consent: Risks, benefits, and alternatives discussed with patient and verbal consent was obtained from patient as well as over the phone via nursing. Procedure: The area was prepped and draped in the usual sterile fashion. Local anesthesia was achieved using 1% Lidocaine with epinephrine. The wound was copiously irrigated and cleaned. 6 sutures were placed using 4-0 Ethilon in an interrupted fashion. The estimated blood loss was minimal. A dressing was applied to the area with Bacitracin. The patient tolerated the procedure well without complications. Foreign Material: None Debridement: None Follow-up: Anticipatory guidance, as well as standard post-procedure care, was explained. Return precautions are given. Follow-up visit set for suture removal and evaluation of the laceration. Impression: 1 Dog bite to the left hand 2. 2 cm left hand laceration, suture repair Discharge Plan Triage Chief Complaint: Bite ED Provider: Lalo Garcia Dx/Rx/DC Orders Clinical Impression: Dog bite Instructions: ED Dog Bite Prescriptions: New amoxicillin-pot clavulanate 875-125 mg tablet 1 tab PO BID 7 Days Qty: 14 0RF No Action metoprolol tartrate 75 mg tablet 75 mg PO BID Zepbound 2.5 mg/0.5 mL pen injector 2.5 mg subcut QWEEK Rx Instructions: for 4 weeks methylphenidate HCl 54 mg tablet extended release 24hr 54 mg PO QAM sertraline [Zoloft] 100 MG tablet 100 mg PO DAILY methylphenidate HCl [Ritalin LA] 40 mg capsule,ER biphasic 50-50 40 mg PO DAILY Primary Care Provider: Uvaldo Edouard Chi Referrals: Uvaldo Edouard Chi, MD [Primary Care Provider] - 3-5 Days Activity Restrictions/Additional Instructions: Okay to shower in 24 hours. No lakes, moe, hot tubs, swimming pools, soaking in the bathtub until fully healed. Monitor for signs of infection. Take all of your antibiotics. Sutures need to be removed in 7 to 10 days. Print Language: Luxembourger Disposition Disposition: Home, Self Care
== END 2024-12-21 15:25 | disposition home or self-care (01) ==
PROVIDERS: Emergency Provider Surgery; PCP Family Medicine Geriatric Medicine; Visit Provider Surgery
DX: S61.412A Laceration without foreign body of left hand, initial encounter (principal); W54.0XXA Bitten by dog, initial encounter; E78.49 Other hyperlipidemia; F41.9 Anxiety disorder, unspecified; Z79.899 Other long term (current) drug therapy; F90.9 Attention-deficit hyperactivity disorder, unspecified type; Z90.49 Acquired absence of other specified parts of digestive tract; Z23 Encounter for immunization; F33.42 Major depressive disorder, recurrent, in full remission; I10 Essential (primary) hypertension
CPT/HCPCS: 12001; 90715; 99284

== ENCOUNTER → 2025-02-03 | Outpatient (CLI) | payer MEDICAID, SELFPAY ==
[2025-02-03 14:30] LABS: Hematocrit 47.9 % (40-54); Hemoglobin 16.5 g/dL (13.0-16.5); Mean Corp Hgb Conc 34.4 g/dL (32-36); Mean Corpuscular Volume 87.4 fL (80-94); Mean Platelet Vol. 10.8 fl (6.2-12.0); Platelet Count 155 K/mm3 (150-450); RBC Distribution Width CV 13.1 % (11.6-14.6); RBC Distribution Width SD 41.1 fl (35.1-43.9); Red Blood Count 5.48 M/mm3 (4.6-6.2); White Blood Count 8.7 K/mm3 (4.4-11.0)
[2025-02-03 15:31] LABS: AST(SGOT) 29 U/L (<=37); Alanine Aminotransfer ALT/SGPT 36 U/L (<=46); Albumin, Serum 4.5 g/dL (3.5-5.0); Alkaline Phosphatase 112 U/L (40-129); Anion Gap 11 (5-15); BUN 16 mg/dL (4-19); BUN/Creat Ratio 15.2 RATIO (10-20); Calcium,Total 10.0 mg/dL (7.6-11.0); Carbon Dioxide 25.0 mmol/L (21.0-32.0); Chloride 107 mmol/L (98-108); Cholesterol 126 mg/dL (<=200); Globulin 2.8 g/dL (2.2-4.2); Glucose 87 mg/dL (70-99); Low Density Lipoprotein Calc. 47 mg/dL; Potassium 4.3 mmol/L (3.3-5.1); Triglycerides 303 mg/dL; Very Low Density Lipoprotein 61 mg/dL (5-40); cholesterol:hdl ratio screen 6.85
[2025-02-03 16:12] LABS: Vitamin D,25 Hydroxy 22.5 ng/mL (30-100)
== END | disposition home or self-care (01) ==
LOC: LAB 13:57
PROVIDERS: PCP Family Medicine Geriatric Medicine; Referring Provider Psychiatry & Neurology Child & Adolescent Psychiatry; Visit Provider Psychiatry & Neurology Child & Adolescent Psychiatry
DX: Z79.899 Other long term (current) drug therapy (principal)
CPT/HCPCS: 36415; 80053; 80061; 82306; 83036; 84443; 85027

== ENCOUNTER 2025-02-10 15:05 | Emergency (ER) | payer MEDICAID, SELFPAY ==
[2025-02-10 15:07] VITALS: BP 133/99; PULSE 128; RESP 18; TEMP 37.6; O2SAT 95; BMI 40.1
[2025-02-10 15:09] VITALS: BP 151/104; PULSE 113; RESP 25; TEMP 37.6; O2SAT 96
--- NOTE | 2025-02-10 17:01 | ED.RN ---
Message left for guardian to call back for consent
[2025-02-10 17:06] VITALS: BP 177/97; PULSE 99; O2SAT 92
--- OUTSIDE RECORDS SUMMARY | 2025-02-10 17:08 | XMS RPT_ITS | CCD ---
Author Organization [facility] Care Team Providers Care Monitoring Specialist Name Role Phone Dr. Duane Edouard Chi Primary Care Provider Dr. Duane Edouard Chi Referring Provider Stephany ANTUNEZ, HARMONY Perez Attending Provider NATASHA, DUANE CHI Primary Care Unavailable NATASHA, DUANE CHI Primary Care Unavailable Natasha MOJICA, Dr. Duane Abreu Primary Care Provider [phone] Natasha MOJICA, Dr. Duane Abreu Attending Provider Dr. Duane Edouard MD, Chi Referring Provider Amaya CODY-Kait Gao Attending Provider Kait Nation Referring Provider Dr. Duane Edouard MD, Chi Primary Care Provider Dr. Duane Edouard MD, Chi Referring Provider Dr. Duane Edouard MD, Chi Primary Care Provider Dr. Duane Edouard MD, Chi Referring Provider Amaya CODY-Kait Gao Attending Provider Dr. Lalo Garcia DO Emergency Provider Natasha, Duane Chi Primary Care Unavailable Natasha, Duane Chi Attending Unavailable Natasha, Duane Chi Referring Unavailable Natasha, Duane Chi Primary Care Unavailable Natasha, Duane Chi Attending Unavailable Natasha, Duane Chi Referring Unavailable Kait Conde Attending Unavailable Natasha, Duane Chi Referring Unavailable Natasha, Duane Chi Primary Care Unavailable Kait Conde Attending Unavailable Natasha, Duane Chi Referring Unavailable Natasha, Duane Chi Primary Care Unavailable Natasha, Duane Chi Attending Unavailable Natasha, Duane Chi Referring Unavailable Natasha, Duane Chi Primary Care Unavailable Kait Conde Attending Unavailable Kait Conde Referring Unavailable Natasha, Duane Chi Primary Care Unavailable Lalo Garcia Attending Unavailabl e Natasha, Duane Chi Primary Care Unavailable Cecile Schofield Attending Unavailable Cecile Schofield Referring Unavailable Natasha, Duane Chi Primary Care Unavailable Medications Current Medications Medication Drug Class(es) Dates Sig (Normalized) Sig (Original) amoxicillin 875 mg / clavulanate 125 mg oral tablet (1 source) Penicillin-class Antibacterial Start: 12-21-2024 Amoxicillin-Pot Clavulanate 875-125 mg tablet Active 1 {tbl} PO TWICE A DAY 14 7 0 December 21, 2024 12:00am 50/50 release 24 hr methylphenidate hydrochloride 40 mg extended release oral capsule (9 sources) Central Nervous System Stimulant Start: 11-11-2024 take 1 tablet by mouth once daily in the morning Methylphenidate Hcl 54 mg tablet extended release 24hr Active 54 mg PO EVERY MORNING 0 November 11, 2024 12:00am Start: 05-30-2016 End: 11-11-2024 Methylphenidate Hcl (Ritalin La) 40 mg capsule,ER biphasic 50- 50 Active 40 mg PO DAILY November 11, 2024 10:19am metoprolol tartrate 75 mg oral tablet (3 sources) beta-Adrenergic Rbyan Start: 07-29-2024 take 1 tablet by mouth twice daily Metoprolol Tartrate 75 mg tablet Active 75 mg PO TWICE A DAY July 29, 2024 1:00am sertraline 100 mg oral tablet (5 sources) Serotonin Reuptake Inhibitor Start: 05-30-2016 take 1 tablet by mouth once daily Sertraline (Zoloft) 100 MG tablet Active 100 mg PO DAILY May 30, 2016 1:00am Tirzepatide (Weight Loss) (3 sources) Start: 07-29-2024 Tirzepatide (Weight Loss) (Zepbound) 2.5 mg/0.5 mL pen injector Active 2.5 mg SC EVERY WEEK July 29, 2024 1:00am for 4 weeks Completed/Discontinued Medications Medication Drug Class(es) Dates Sig (Normalized) Sig (Original) atomoxetine 40 mg oral capsule (5 sources) Norepinephrine Reuptake Inhibitor Start: 05-30-2016 End: 07-29-2024 take 1 capsule by mouth once daily Atomoxetine (Strattera) 40 MG capsule Discontinued 40 mg PO DAILY May 30, 2016 1:00am July 29, 2024 3:19pm melatonin 3 mg oral tablet (5 sources) Start: 05-30-2016 End: 07-29-2024 take 1 tablet by mouth at bedtime Melatonin 3 MG tablet Discontinued 3 mg PO AT BEDTIME May 30, 2016 1:00am July 29, 2024 3:18pm omeprazole 20 mg delayed release oral tablet (5 sources) Proton Pump Inhibitor Start: 05-30-2016 End: 07-29-2024 take 1 tablet by mouth once daily Omeprazole 20 MG tablet,delayed release (DR/EC) Discontinued 20 mg PO DAILY May 30, 2016 1:00am July 29, 2024 3:19pm predniSONE 10 mg oral tablet (5 sources) Start: 06-04-2022 End: 07-29-2024 take 1 tablet by mouth twice daily Prednisone 10 mg tablet Discontinued 10 mg PO TWICE A DAY June 04, 2022 1:00am July 29, 2024 3:18pm Problems Problem Classification Problem Date Documented Da te Episodic/Chronic Anxiety disorders (5 sources) Mixed anxiety and depressive disorder; Translations: [Anxiety disorder, unspecified] 04-16-2020 Chronic E Codes: Natural/environment (1 source) Dog bite - wound; Translations: [Bitten by dog, initial encounter] 12-21-2024 Episodic Essential hypertension (1 source) Essential (primary) hypertension; Translations: [Essential (primary) hypertension] Onset: 05-31-2024 Chronic Immunizations and screening for infectious disease (6 sources) Contact with and (suspected) exposure to other viral communicable diseases; Translations: [Contact with or suspected exposure to other viral communicable disease] 06-04-2022 Episodic Open wounds of extremities (1 source) Laceration without foreign body of left hand, initial encounter; Translations: [Laceration without foreign body of left hand, initial encounter] Onset: 12-29-2024 Episodic Other aftercare (2 sources) 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; Translations: [On angiotensin receptor blockers (ARB)] Onset: 02-19-2024 Episodic Other injuries and conditions due to external causes (5 sources) Closed injury of head; Translations: [Unspecified injury of head, initial encounter] 04-17-2020 Episodic Other liver diseases (1 source) Other cirrhosis of liver; Translations: [Other cirrhosis of liver] Onset: 06-25-2024 Chronic Other upper respiratory infections (6 sources) Upper respiratory infection; Translations: [Acute upper respiratory infection, unspecified] 06-04-2022 Episodic Residual codes; unclassified (7 sources) Obstructive sleep apnea syndrome; Translations: [Obstructive sleep apnea (adult) (pediatric)] 08-05-2024 Chronic Residual codes; unclassified (1 source) Obstructive sleep apnea (adult) (pediatric); Translations: [Obstructive sleep apnea (adult) (pediatric)] Onset: 08-23-2024 Chronic Residual codes; unclassified (1 source) Recurrent hypersomnia; Translations: [Recurrent hypersomnia] Onset: 07-04-2024 Chronic Results Test Name Value Interpretation Reference Range Facility CBC-Complete Blood Cnt No Di ffon 02-03-2025 Erythrocyte distribution width (RBC) [Ratio] 13.1 % Normal 11.6-14.6 [facility] Comment on above: Performed By: #### L 500.4100, L501.9985, L500.4050, L506.1001, L501.9520, L100.0500 #### [facility] [address] [place], [address] Hematocrit (Bld) [Volume fraction] 47.9 % Normal 40-54 [facility] Comment on above: Performed By: #### L 500.4100, L501.9985, L500.4050, L506.1001, L501.9520, L100.0500 #### [facility] [address] [place], [address] Hemoglobin (Bld) [Mass/Vol] 16.5 g/dL Normal 13.0-16.5 [facility] Comment on above: Performed By: #### L 500.4100, L501.9985, L500.4050, L506.1001, L501.9520, L100.0500 #### [facility] [address] [place], [address] MCH (RBC) [Entitic mass] 30.1 pg Normal 27.0-32.0 [facility] Comment on above: Performed By: #### L 500.4100, L501.9985, L500.4050, L506.1001, L501.9520, L100.0500 #### [facility] [address] [place], [address] MCHC (RBC) [Mass/Vol] 34.4 g/dL Normal 32-36 [facility] Comment on above: Performed By: #### L 500.4100, L501.9985, L500.4050, L506.1001, L501.9520, L100.0500 #### [facility] [address] [place], [address] MCV (RBC) [Entitic vol] 87.4 fL Normal 80-94 [facility] Comment on above: Performed By: #### L 500.4100, L501.9985, L500.4050, L506.1001, L501.9520, L100.0500 #### [facility] [address] [place], [address] Platelet mean volume (Bld) [Entitic vol] 10.8 fL Normal 6.2-12.0 [facility] Comment on above: Performed By: #### L 500.4100, L501.9985, L500.4050, L506.1001, L501.9520, L100.0500 #### [facility] [address] [place], [address] Platelets (Bld) [#/Vol] 155 10*3/uL Normal 150-450 [facility] Comment on above: Performed By: #### L 500.4100, L501.9985, L500.4050, L506.1001, L501.9520, L100.0500 #### [facility] [address] [place], [address] RBC (Bld) [#/Vol] 5.48 10*6/uL Normal 4.6-6.2 [facility] Comment on above: Performed By: #### L 500.4100, L501.9985, L500.4050, L506.1001, L501.9520, L100.0500 #### [facility] [address] [place], [address] RDW SD 41.1 fl Normal 35.1-43.9 [facility] Comment on above: Performed By: #### L 500.4100, L501.9985, L500.4050, L506.1001, L501.9520, L100.0500 #### [facility] [address] [place], [address] WBC (Bld) [#/Vol] 8.7 10*3/uL Normal 4.4-11.0 [facility] Comment on above: Performed By: #### L 500.4100, L501.9985, L500.4050, L506.1001, L501.9520, L100.0500 #### [facility] [address] [place], [address] Comprehensive Metabolic [facility] 02-03-2025 Albumin [Mass/Vol] 4.5 g/dL Normal 3.5-5.0 [facility] Comment on above: Performed By: #### L 500.4100, L501.9985, L500.4050, L506.1001, L501.9520, L100.0500 #### [facility] [address] [place], [address] Albumin/Globulin [Mass ratio] 1.6 {ratio} Normal 0.9-2.4 [facility] Comment on above: Performed By: #### L 500.4100, L501.9985, L500.4050, L506.1001, L501.9520, L100.0500 #### [facility] [address] [place], [address] ALK PHOS 112 U/L Normal 40-129 [facility] Comment on above: Performed By: #### L 500.4100, L501.9985, L500.4050, L506.1001, L501.9520, L100.0500 #### [facility] [address] [place], [address] ALT [Catalytic activity/Vol] 36 U/L Normal <=46 [facility] Comment on above: Performed By: #### L 500.4100, L501.9985, L500.4050, L506.1001, L501.9520, L100.0500 #### [facility] [address] [place], [address] AST [Catalytic activity/Vol] 29 U/L Normal <=37 [facility] Comment on above: Performed By: #### L 500.4100, L501.9985, L500.4050, L506.1001, L501.9520, L100.0500 #### [facility] [address] [place], [address] Bilirubin [Mass/Vol] 0.87 mg/dL Normal 0.00-1.30 [facility] Comment on above: Performed By: #### L 500.4100, L501.9985, L500.4050, L506.1001, L501.9520, L100.0500 #### [facility] [address] [place], [address] BUN/CRE 15.2 RATIO Normal 10-20 [facility] Comment on above: Performed By: #### L 500.4100, L501.9985, L500.4050, L506.1001, L501.9520, L100.0500 #### [facility] [address] [place], [address] Calcium [Mass/Vol] 10.0 mg/dL Normal 7.6-11.0 [facility] Comment on above: Performed By: #### L 500.4100, L501.9985, L500.4050, L506.1001, L501.9520, L100.0500 #### [facility] [address] [place], [address] Chloride [Moles/Vol] 107 mmol/L Normal 98-108 [facility] Comment on above: Performed By: #### L 500.4100, L501.9985, L500.4050, L506.1001, L501.9520, L100.0500 #### [facility] [address] [place], [address] CO2 [Moles/Vol] 25.0 mmol/L Normal 21.0-32.0 [facility] Comment on above: Performed By: #### L 500.4100, L501.9985, L500.4050, L506.1001, L501.9520, L100.0500 #### [facility] [address] [place], [address] Creatinine [Mass/Vol] 1.02 mg/dL Normal 0.70-1.20 [facility] Comment on above: Performed By: #### L 500.4100, L501.9985, L500.4050, L506.1001, L501.9520, L100.0500 #### [facility] [address] [place], [address] GAP 11 Normal 5-15 [facility] Comment on above: Performed By: #### L 500.4100, L501.9985, L500.4050, L506.1001, L501.9520, L100.0500 #### [facility] [address] [place], [address] GFR/1.73 sq M.predicted among non-blacks MDRD (S/P/Bld) [Vol rate/Area] 96 mL/min/{1.73_m2} Normal >60 [facility] Comment on above: Result Comment: mL/m in/1.73m2 CKD-EPI Creatinine Equation (2020) Performed By: #### L 500.4100, L501.9985, L500.4050, L506.1001, L501.9520, L100.0500 #### [facility] [address] [place], [address] Globulin (S) [Mass/Vol] 2.8 g/dL Normal 2.2-4.2 [facility] Comment on above: Performed By: #### L 500.4100, L501.9985, L500.4050, L506.1001, L501.9520, L100.0500 #### [facility] [address] [place], [address] Glucose [Mass/Vol] 87 mg/dL Normal 70-99 [facility] Comment on above: Performed By: #### L 500.4100, L501.9985, L500.4050, L506.1001, L501.9520, L100.0500 #### [facility] [address] [place], [address] Potassium [Moles/Vol] 4.3 mmol/L Normal 3.3-5.1 [facility] Comment on above: Performed By: #### L 500.4100, L501.9985, L500.4050, L506.1001, L501.9520, L100.0500 #### [facility] [address] [place], [address] Sodium [Moles/Vol] 142 mmol/L Normal 133-145 [facility] Comment on above: Performed By: #### L 500.4100, L501.9985, L500.4050, L506.1001, L501.9520, L100.0500 #### [facility] [address] [place], [address] T PROT 7.3 g/dL Normal 5.9-8.4 [facility] Comment on above: Performed By: #### L 500.4100, L501.9985, L500.4050, L506.1001, L501.9520, L100.0500 #### [facility] [address] [place], [address] Urea nitrogen [Mass/Vol] 16 mg/dL Normal 4-19 [facility] Comment on above: Performed By: #### L 500.4100, L501.9985, L500.4050, L506.1001, L501.9520, L100.0500 #### [facility] [address] [place], [address] Hemoglobin A1con 02-03-2025 HbA1c (Bld) [Mass fraction] 5.0 % Normal <=5.6 [facility] Comment on above: Result Comment: Norm al < 5.7 % Prediabetic 5.7 - 6.4 % Diabetic >or= 6.5 % Please note range changes. Performed By: #### L 500.4100, L501.9985, L500.4050, L506.1001, L501.9520, L100.0500 #### [facility] [address] [place], [address] Lipid Profileon 02-03-2025 CHOL:HDL 6.[address] [facility] Comment on above: Performed By: #### L 500.4100, L501.9985, L500.4050, L506.1001, L501.9520, L100.0500 #### [facility] [address] [place], [address] Cholesterol [Mass/Vol] 126 mg/dL Normal <=200 [facility] Comment on above: Result Comment: Chol esterol level, Desirable <200 mg/dL Borderline high cholesterol 200-239 mg/dL High cholesterol >=240 mg/dL Recommendations of the NCEP Adult Treatment Panel for the following risk-cutoff thresholds for the [place] population. Performed By: #### L 500.4100, L501.9985, L500.4050, L506.1001, L501.9520, L100.0500 #### [facility] [address] [place], [address] Cholesterol in HDL [Mass/Vol] 18 mg/dL Low [facility] Comment on above: Result Comment: Diana onal Cholesterol Education Program (NCEP) guidelines: <40 mg/dL: Low HDL-cholesterol (major risk factor for CHD) >= 60 mg/dL: High HDL-cholesterol (negative risk factor for CHD) HDL-cholesterol is affected by a number of factors, e.g. smoking, exercise, hormones, sex and age. Performed By: #### L 500.4100, L501.9985, L500.4050, L506.1001, L501.9520, L100.0500 #### [facility] [address] [place], [address] Cholesterol in LDL [Mass/Vol] 47 mg/dL Normal [facility] Comment on above: Result Comment: Bord gqfcuq=314-333 mg/dL Higher Vxkz=974 mg/dL or greater Friedwald Equation for LDL-C Performed By: #### L 500.4100, L501.9985, L500.4050, L506.1001, L501.9520, L100.0500 #### [facility] [address] [place], [address] Cholesterol in VLDL [Mass/Vol] 61 mg/dL High 5-40 [facility] Comment on above: Performed By: #### L 500.4100, L501.9985, L500.4050, L506.1001, L501.9520, L100.0500 #### [facility] [address] [place], [address] Triglyceride [Mass/Vol] 303 mg/dL High [facility] Comment on above: Result Comment: The drugs N-Acetylcysteine and Metamizole may falsely depress this assay. Normal range: <150 mg/dL Borderline High: 150-199 mg/dL High: 200-499 mg/dL Very High: >500 mg/dL Performed By: #### L 500.4100, L501.9985, L500.4050, L506.1001, L501.9520, L100.0500 #### [facility] [address] [place], [address] Thyroid Stim Hormone (TSH)on 02-03-2025 TSH 0.637 uIU/mL Normal 0.300-4.200 [facility] Comment on above: Performed By: #### L 500.4100, L501.9985, L500.4050, L506.1001, L501.9520, L100.0500 #### [facility] [address] [place], [address] Vitamin D,25 Hydroxyon 02-03 Vitamin D 25-OH 22.5 ng/mL Low 30-100 [facility] Comment on above: Result Comment: Jyothi min D Status Deficiency: <20 ng/mL (50nmol/L) Insufficiency: 20-30 ng/mL (50-75 nmol/L) Sufficiency: 30-100 ng/mL (75-250 nmol/L) Toxicity: >100 ng/mL (>250 nmol/L) Performed By: #### L 500.4100, L501.9985, L500.4050, L506.1001, L501.9520, L100.0500 #### [facility] [address] [place], [address] Emergency Department Summary on 12-21-2024 Emergency Department Summary [facility] Medical Records Department [address] [place] [address] Emergency Department Summary 12/21/24 MR#: [id number] Acct: [id number] Name: SEAN LAGUERRE Rep #: [id number] : 1985 39 From: Lalo Garcia DO PCP: Dr. Duane Edouard MD Status:DEP ER Location: ED HPI History of Present Illness Chief Complaint: Bite Narrative Narrative: Chief complaint and HPI: Left hand dog bite. 39-year-old male with past medical history of autism, anxiety, depression presents for evaluation of dog bite to the left hand. Dog belonged to a friend. Dog is believed to be vaccinated. Denies any pain to the hand. Unknown tetanus. Patient has a guardian. Denies injury elsewhere. Review of systems: See HPI Medications: As listed on the chart Allergies: As listed on the chart PFSH: Per chart Vital signs: As listed on the chart. Reviewed. Physical exam: Gen: A O x3, NAD Head: Normocephalic, atraumatic Eyes: No sclera icterus, conjunctiva clear ENT: Moist mucous membranes CV: Regular rate Resp: Nonlabored respiration Musc: Full ROM of the left upper extremity including wrist/hand/fingers, radial pulse +2, good capillary refill, sensation intact, compartments soft, 2 cm V-shaped laceration to the dorsal aspect of the middle left hand-subcutaneous fat visualized Skin: Warm, dry Neuro: Alert, oriented, grossly intact, sensation intact Psych: Cooperative, appropriate mood and affect [facility] Medical History Other cirrhosis of liver Leg cramp Snoring Other hyperlipidemia GERD (gastroesophageal reflux disease) BMI 40.0-44.9, adult AA (alcohol abuse) Fatty liver Other fatigue Alcohol use Major depressive disorder, recurrent episode, in full remission Recurrent hypersomnia Hepatic fibrosis Essential (primary) hypertension Hyperlipidemia ADHD BMI 45.0-49.9, adult Contact with and (suspected) exposure to other viral communicable diseases URI (upper respiratory infection) Home Medications ???Medication ???Instructions ???Recorded ???Last Taken ???Type sertraline 100 mg tablet (Zoloft) 100 mg PO DAILY 05/30/16 05/30/16 History metoprolol tartrate 75 mg tablet 75 mg PO BID 07/29/24 Unknown Hist ory tirzepatide (weight loss) 2.5 2.5 mg subcut QWEEK 07/29/24 Unkno wn History mg/0.5 mL subcutaneous pen injector (Zepbound) methylphenidate HCl 40 mg biphasic 40 mg PO DAILY 11/11/24 Unknown History 50-50 capsule,extended release (Ritalin LA) methylphenidate HCl 54 mg 54 mg PO QAM 11/11/24 Unknown Hist ory tablet,extended release 24 hr amoxicillin 875 mg-potassium 1 tab PO BID 7 days #14 tabs 12/21 Unknown Rx clavulanate 125 mg tablet Allergy/AdvReac Type Severity Reaction Status Date / Time No Known Allergies Allergy Verified 12/21/24 14:43 Family History Mother Sleep apnea Surgical History History of appendectomy Social History Smoking Status: Never smoker alcohol intake: current alcohol intake frequency: holidays/special occasions only EXAM Physical Exam Const Vital Signs: 12/21/24 14:43 Temperature 98.1 F Temperature Source Oral Pulse Rate 80 Respiratory Rate 16 Blood Pressure 161/95 H Blood Pressure Mean 117 Pulse Ox 97 Oxygen Delivery Method Room Air MDM MDM MDM Narrative Medical decision making narrative: 39-year-old male with past medical history of autism, anxiety, depression presents for evaluation of dog bite to the left hand. Dog belonged to a friend. Dog is believed to be vaccinated. Denies any pain to the hand. Unknown tetanus. Patient has a guardian. We were unable to contact the guardian however we did get consent from the custodial to treat the patient. He consented as well. Tetanus updated. Laceration was repaired and patient tolerated this well. Given patient has no pain or deformity to the hand, I do not think any x-rays are needed. Patient was given education on monitoring for signs of infection and suture remover. Will be placed on Augmentin for antibiotic prophylaxis. He confirmed understanding of the plan. Laceration Repair Indication: Laceration Location: 2 cm V-shaped laceration to the left hand Consent: Risks, benefits, and alternatives discussed with patient and verbal consent was obtained from patient as well as over the phone via nursing. Procedure: The area was prepped and draped in the usual sterile fashion. Local anesthesia was achieved using 1% Lidocaine with epinephrine. The wound was copiously irrigated and cleaned. 6 sutures were placed using 4-0 Ethilon in an interrupted fashion. Th (more content not included)... Normal [facility] Pulmonary Visit Reporton Pulmonary Visit Report [facility] [place] [address] [place] [address] OFFICE VISIT Date of Service: 11/11/24 MR#: [id number] Acct: [id number] Name: SEAN LAGUERRE Rep #: [id number] : 1985 Provider: Kait Conde NP Age/Sex: 39/M Location[place] [facility] [place] Status: Signed Assessment and Plan Assessment and Plan (1) Obstructive sleep apnea: Status: Chronic Plan: Severe obstructive sleep apnea with severe hypoxemia identified on initial sleep study. Patient is struggling to achieve full compliance with therapy. I have asked for him to either find a new headgear or replace his current set up. I have also recommended that he work on increasing his compliance with therapy. I have discussed ways for him to increase use of the device. Specifically I have asked for him to keep his headgear on at night when he is going to the bathroom and just to disconnect the tubing. The patient is planning to meet with his vendor today. I have recommended that he follow-up in 3 months to repeat compliance download at that time. Plan Details Follow Up: 3 Months (LMR) HPI HPI Comments Details: Patient is a 39-year-old male who presents today for sleep apnea follow-up. He is ambulatory and currently on room air. He is accompanied today by his provider. He underwent an overnight split PSG from June 16, 2024 which showed very severe obstructive sleep apnea with substantial desaturations. Due to this, CPAP was attempted but there was not enough sleep to fix the apnea. The patient had reported daytime hypersomnia to his PCP, Dr. Edouard who ordered the sleep study. Patient has a history of GERD, major depressive disorder, obesity, hypertension. He does snore. He has never had a PAP device. He goes to bed at 10:30 PM and awakens at 7 AM. His mother did have sleep disordered breathing but she is . His neck circumference is 51 cm. He has no significant pulmonary history. His mother had asthma. He is a lifetime non-smoker. The patient denies shortness of breath, cough, wheeze. He denies chest pain and chest tightness. He denies fever, chills, body aches. He attends a day program and lives in an apartment alone. The patient is apprehensive about wearing a mask at night. He is unsure if he will be able to sleep with it on. The patient reports he struggled with CPAP during the study because he felt like he was drowning. The patient reports that he does not have any headaches. He reports that he does use his device. He experiences a dry mouth at times but this does not occur on a nightly basis. He is struggling with his headgear strap. He does have nocturia x 1-2. He does nap on occasion. He reports that he feels rested at times but this depends on how late I stay up . ESS 4. Documentation reviewed with patient today includes: Titration study from August 18, 2024 showed the recommendation to utilize CPAP at 13 cm during sleep. The patient was also trialed on BiPAP at 17 over 13 cm which was also effective although there were several central apneas recorded. Compliance download from November 08, 2024 for the last 30 days shows 77% compliance of therapy, using the device 3 hours and 50 minutes nightly average. He is using CPAP 13 cm. There is minimal air leak identified. AHI is 1.3. Intake Vital Signs 08/05/24 05:44 11/11/24 06:13 Height 5 ft 9 in 5 ft 9 in Weight: 299 lb BMI 44.1 BP 140/98 H Blood Pressure Location Rt radial Position Sitting Respiration 16 Pulse 86 Pulse Source Monitor Temp 97.3 F L Temperature Source Temporal Artery Pulse Oximetry (%) 91 Oxygen Delivery Method room air Intake Visit Reasons: 3 M FU Pewter Finisher Required: No DME Vendor: Kaycee Accompanied by: Caregiver Is patient in pain?: No Allergies No Known Allergies Allergy (Verified 11/11/24 10:19) Medications ???Medication ???Instructions ???Recorded ???Confirmed ???Type sertraline 100 mg tablet (Zoloft) 100 mg PO DAILY 05/30/16 11/11/24 History metoprolol tartrate 75 mg tablet 75 mg PO BID 07/29/24 11/11/24 His tory tirzepatide (weight loss) 2.5 2.5 mg subcut QWEEK 07/29/2411/11 History mg/0.5 mL subcutaneous pen injector (Zepbound) methylphenidate HCl 40 mg biphasic 40 mg PO DAILY 11/11/24 11/11/24 History 50-50 capsule,extended release (Ritalin LA) methylphenidate HCl 54 mg 54 mg PO QAM 11/11/24 11/11/24 His tory tablet,extended release 24 hr Have you fallen in the past year?: No [facility] Medical History Other cirrhosis of liver Leg cramp Snoring Other hyperlipidemia GERD (gastroesophageal reflux disease) BMI 40.0-44.9, adult AA (alcohol abuse) Fatty liver Other fatigue Alcohol use Major depressive disorder, (more content not included)... Normal [facility] Pulmonary Visit Reporton Pulmonary Visit Report [facility] Pulmonary Medicine of [address] [place] [address] OFFICE VISIT Date of Service: 08/05/24 MR#: [id number] Acct: [id number] Name: SEAN LAGUERRE Rep #: [id number] : 1985 Provider: Kait Conde NP Age/Sex: 38/M Location[place] [facility] [place] Status: Signed Assessment and Plan Assessment and Plan (1) Obstructive sleep apnea: Status: Acute Plan: The patient has severe obstructive sleep apnea with severe hypoxemia identified on initial sleep study. PAP therapy was added during the study due to the severity of the disease. I have discussed the pathophysiology of sleep apnea and the comorbid conditions associated with this disease process with the patient and his provider today. I have recommended that he proceed with titration study so that both the apnea and the nocturnal hypoxemia can be fully treated. I have recommended the use of Sonata 10 mg on an as-needed basis for the night of sleep study. The junior technical writer should perform a mini neuro evaluation prior to releasing the patient in the morning. I have recommended set up with a machine once the study has been completed. I will plan to follow the patient in about 3 months with a compliance download at that time. The patient should notify this practice if he is struggling to use the device in the meantime. Orders: Orders Polysomnography with PAP Today G47.33 - Obstructive sleep apnea (adult) (pediatric) Plan Details Follow Up: 3 Months (LMR) HPI HPI Comments Details: Patient is a 38-year-old male who presents today for evaluation of sleep problems. He is ambulatory and currently on room air. He is accompanied today by his provider. He underwent an overnight split PSG from June 16, 2024 which showed very severe obstructive sleep apnea with substantial desaturations. Due to this, CPAP was attempted but there was not enough sleep to fix the apnea. The patient had reported daytime hypersomnia to his PCP, Dr. Edouard who ordered the sleep study. Patient has a history of GERD, major depressive disorder, obesity, hypertension. He does snore. He has never had a PAP device. He goes to bed at 10:30 PM and awakens at 7 AM. His mother did have sleep disordered breathing but she is . His neck circumference is 51 cm. He has no significant pulmonary history. His mother had asthma. He is a lifetime non-smoker. He attends a day program and lives in an apartment alone. The patient is apprehensive about wearing a mask at night. He is unsure if he will be able to sleep with it on. The patient reports he struggled with CPAP during the study because he felt like he was drowning. Intake Vital Signs 06/04/22 16:27 08/05/24 05:44 Height 5 ft 9 in 5 ft 9 in Weight: 297 lb BMI 43.8 BP 117/73 Blood Pressure Location Lt brachial Position Sitting Respiration 20 H Pulse 61 Pulse Source Monitor Temp 95.6 F L Temperature Source Temporal Artery Pulse Oximetry (%) 95 Oxygen Delivery Method room air Intake Visit Reasons: Sleep problems Pewter Finisher Required: No DME Vendor: n/a Accompanied by: Other Is patient in pain?: No Allergies No Known Allergies Allergy (Verified 08/05/24 10:19) Medications ???Medication ???Instructions ???Recorded ???Confirmed ???Type methylphenidate HCl 40 mg biphasic 40 mg PO DAILY 05/30/16 08/05/24 History 50-50 capsule,extended release (Ritalin LA) sertraline 100 mg tablet (Zoloft) 100 mg PO DAILY 05/30/16 08/05/24 History metoprolol tartrate 75 mg tablet 75 mg PO BID 07/29/24 08/05/24 His tory tirzepatide (weight loss) 2.5 2.5 mg subcut QWEEK 07/29/2408/05 History mg/0.5 mL subcutaneous pen injector (Zepbound) [facility] Medical History Other cirrhosis of liver Leg cramp Snoring Other hyperlipidemia GERD (gastroesophageal reflux disease) BMI 40.0-44.9, adult AA (alcohol abuse) Fatty liver Other fatigue Alcohol use Major depressive disorder, recurrent episode, in full remission Recurrent hypersomnia Hepatic fibrosis Essential (primary) hypertension Hyperlipidemia ADHD BMI 45.0-49.9, adult Contact with and (suspected) exposure to other viral communicable diseases URI (upper respiratory infection) Surgical History (Updated 07/29/24 @ 14:12 by Sydney Fraser) History of appendectomy Family History (Updated 08/05/24 @ 10:25 by Sydney Fraser) Mother Sleep apnea Social History (Updated 08/05/24 @ 10:20 by Sydney Fraser) Smoking Status: Never smoker alcohol intake: current alcohol intake frequency: holidays/special occasions only Review of Systems Resp Respiratory: Yes as per HPI Exam Const Constitutional: Positive cooperative, in no acute respirato (more content not included)... Normal [facility] ABD Limited w/ Elastographyo n 06-03-2024 ABD Limited w/ Elastography [facility] Imaging Services [address] [place] [address] ABD Limited w/ Elastography MR#: [id number] Acct: [id number] Name: SEAN LAGUERRE Rep #: [id number] : 1985 M 38 From: Juan M zavala MD PCP: Dr. Duane Edouard MD Status: REG CLI Study: ABD Limited w/ Elastography Date of Exam: 05/25 Exam# [id number] Ordering Dr: Duane Edouard MD -[id number] STUDY: ABDOMINAL ULTRASOUND - RIGHT UPPER QUADRANT; ELASTOGRAPHY REASON FOR VISIT: Male, 38 years old. Cirrhosis. TECHNIQUE: Ultrasound evaluation of the right upper quadrant was performed with real-time and static lozano-scale imaging. Point quantification shear wave elastography was performed (Remicalm). TECHNICAL QUALITY: Adequate. COMPARISON: Comparison is made with prior study dated May 09, 2021. FINDINGS: Liver: The liver is enlarged measures 19.4 cm. There is normal echogenicity of the liver. The bile ducts are within normal limits. There is hepatic color flow. The direction of portal flow is hepatopetal. There is no demonstrated mass lesion. Median liver stiffness measured 7 kPa. Gallbladder: Normal distended gallbladder. The gallbladder wall measures 2.0 mm. There is a negative sonographic Johnson''s sign. There is no pericholecystic fluid. There are no gallstones. Common Bile Duct (C.B.D.): The common bile duct was not visualized due to overlying bowel gas. Pancreas: There is normal echogenicity of the visualized pancreas. There is no demonstrated pancreatic mass or cyst. Right Kidney: Normal size of the right kidney. The right kidney measures 10.1 cm x 5.1cm x 5.3 cm. Normal renal cortex. The right cortex measures 2.0 cm. There is no demonstrated renal mass or cyst. There is no right hydronephrosis. US/ABD Limited w/ Elastography IMPRESSION: 1. Liver stiffness measures 7 kPa compatible with F2-F3 (Mild to moderate liver fibrosis) Metavir score. Electronically Signed: Juan M Montanez MD at 13:34 EST , CC: Dr. Duane Edouard MD Spacer Type Bar And Segment: Signed Normal [facility] Absolute neutrophil countOrd ered By: Duane Edouard on 04-29-2024 Neutrophils (Bld) [#/Vol] 4.0 10*3/uL 2.0-7.7 [facility] Albumin to globulin ratioOrd ered By: Duane Edouard on 04-29-2024 Albumin/Globulin [Mass ratio] 1.2 {ratio} 0.9-2.4 [facility] Basophil percentageOrdered B y: Duane Edouard on 04-29-2024 Basophils/100 WBC (Bld) 1.0 % 0-1 [facility] Bilirubin, totalOrdered By: Duane Edouard on 04-29-2024 Bilirubin [Mass/Vol] 0.60 mg/dL 0.20-1.00 [facility] Comment on above: For patients on eltr ombopag therapy, use of Dimension [place] TBIL is not recommended. Blood urea nitrogen (BUN)/cr eatinine ratioOrdered By: Duane Edouard on 04-29-2024 Urea nitrogen/Creatinine [Mass ratio] 11.7 mg/mg 10-20 [facility] CBC W/Diff, Automatedon 12-0 Absolute Lymph 2.29 X10 3/uL Normal 0.83-4.51 [facility] Comment on above: Performed By: #### L 501.9520, L500.4100, L100.0100, L500.4050 ####[facility] [address] [place], [address] Absolute Neut 4.0 X10 3/uL Normal 2.0-7.7 [facility] Comment on above: Performed By: #### L 501.9520, L500.4100, L100.0100, L500.4050 ####[facility] [address] [place], [address] Basophils/100 WBC (Bld) 1.0 % Normal 0-1 [facility] Comment on above: Performed By: #### L 501.9520, L500.4100, L100.0100, L500.4050 ####[facility] [address] [place], [address] Eosinophils/100 WBC (Bld) 6.0 % High 0-5 [facility] Comment on above: Performed By: #### L 501.9520, L500.4100, L100.0100, L500.4050 ####[facility] [address] [place], [address] Erythrocyte distribution width (RBC) [Ratio] 13.0 % Normal 11.6-14.6 [facility] Comment on above: Performed By: #### L 501.9520, L500.4100, L100.0100, L500.4050 ####[facility] [address] [place], [address] Hematocrit (Bld) [Volume fraction] 51.7 % Normal 40-54 [facility] Comment on above: Performed By: #### L 501.9520, L500.4100, L100.0100, L500.4050 ####[facility] [address] [place], [address] Hemoglobin (Bld) [Mass/Vol] 17.0 g/dL High 13.0-16.5 [facility] Comment on above: Performed By: #### L 501.9520, L500.4100, L100.0100, L500.4050 ####[facility] [address] [place], [address] IG% 0.800 Normal 0.0-0.9 [facility] Comment on above: Result Comment: IG% - Immature Granulocytes (promyelocytes, myelocytes and metamyelocytes) > 1% indicates that a LEFT SHIFT is Present. Performed By: #### L 501.9520, L500.4100, L100.0100, L500.4050 ####[facility] [address] [place], [address] Lymphocytes/100 WBC (Bld) 29.7 % Normal 19-41 [facility] Comment on above: Performed By: #### L 501.9520, L500.4100, L100.0100, L500.4050 ####[facility] [address] [place], [address] MCH (RBC) [Entitic mass] 30.6 pg Normal 27.0-32.0 [facility] Comment on above: Performed By: #### L 501.9520, L500.4100, L100.0100, L500.4050 ####[facility] [address] [place], [address] MCHC (RBC) [Mass/Vol] 32.9 g/dL Normal 32-36 [facility] Comment on above: Performed By: #### L 501.9520, L500.4100, L100.0100, L500.4050 ####[facility] [address] [place], [address] MCV (RBC) [Entitic vol] 93.2 fL Normal 80-94 [facility] Comment on above: Performed By: #### L 501.9520, L500.4100, L100.0100, L500.4050 ####[facility] [address] [place], [address] Monocytes/100 WBC (Bld) 10.1 % High 0-10 [facility] Comment on above: Performed By: #### L 501.9520, L500.4100, L100.0100, L500.4050 ####[facility] [address] [place], [address] Neutrophils/100 WBC (Bld) 52.4 % Normal 47-70 [facility] Comment on above: Performed By: #### L 501.9520, L500.4100, L100.0100, L500.4050 ####[facility] [address] [place], [address] Nucleated RBC (Bld) [#/Vol] 0 10*3/uL Normal 0-5 [facility] Comment on above: Performed By: #### L 501.9520, L500.4100, L100.0100, L500.4050 ####[facility] [address] [place], [address] Platelet mean volume (Bld) [Entitic vol] 11.3 fL Normal 6.2-12.0 [facility] Comment on above: Performed By: #### L 501.9520, L500.4100, L100.0100, L500.4050 ####[facility] [address] [place], [address] Platelets (Bld) [#/Vol] 126 10*3/uL Low 150-450 [facility] Comment on above: Performed By: #### L 501.9520, L500.4100, L100.0100, L500.4050 ####[facility] [address] [place], [address] RBC (Bld) [#/Vol] 5.55 10*6/uL Normal 4.6-6.2 [facility] Comment on above: Performed By: #### L 501.9520, L500.4100, L100.0100, L500.4050 ####[facility] [address] [place], [address] RDW SD 44.4 fl High 35.1-43.9 [facility] Comment on above: Performed By: #### L 501.9520, L500.4100, L100.0100, L500.4050 ####[facility] [address] [place], [address] WBC (Bld) [#/Vol] 7.7 10*3/uL Normal 4.4-11.0 [facility] Comment on above: Performed By: #### L 501.9520, L500.4100, L100.0100, L500.4050 ####[facility] [address] [place], [address] Carbon dioxide measurementOr dered By: Duane Edouard on 04-29-2024 CO2 [Moles/Vol] 32.0 mmol/L 21.0-32.0 [facility] Chloride measurementOrdered By: Duane Edouard on 04-29-2024 Chloride [Moles/Vol] 107 mmol/L 98-107 [facility] Comprehensive Metabolic Prof ilon 04-29-2024 Albumin [Mass/Vol] 3.8 g/dL Normal 3.2-5.0 [facility] Comment on above: Performed By: #### L 501.9520, L500.4100, L100.0100, L500.4050 ####[facility] [address] [place], [address] Albumin/Globulin [Mass ratio] 1.2 {ratio} Normal 0.9-2.4 [facility] Comment on above: Performed By: #### L 501.9520, L500.4100, L100.0100, L500.4050 ####[facility] [address] [place], [address] ALK P 98 U/L Normal 45-117 [facility] Comment on above: Performed By: #### L 501.9520, L500.4100, L100.0100, L500.4050 ####[facility] [address] [place], [address] ALT [Catalytic activity/Vol] 61 U/L Normal 16-61 [facility] Comment on above: Performed By: #### L 501.9520, L500.4100, L100.0100, L500.4050 ####[facility] [address] [place], [address] AST [Catalytic activity/Vol] 26 U/L Normal 15-37 [facility] Comment on above: Performed By: #### L 501.9520, L500.4100, L100.0100, L500.4050 ####[facility] [address] [place], [address] Bilirubin [Mass/Vol] 0.60 mg/dL Normal 0.20-1.00 [facility] Comment on above: Result Comment: For patients on eltrombopag therapy, use of Dimension [place] TBIL is not recommended. Performed By: #### L 501.9520, L500.4100, L100.0100, L500.4050 ####[facility] [address] [place], [address] BUN/CRE 11.7 RATIO Normal 10-20 [facility] Comment on above: Performed By: #### L 501.9520, L500.4100, L100.0100, L500.4050 ####[facility] [address] [place], [address] CA,Total 9.2 mg/dL Normal 8.5-10.1 [facility] Comment on above: Performed By: #### L 501.9520, L500.4100, L100.0100, L500.4050 ####[facility] [address] [place], [address] Chloride [Moles/Vol] 107 mmol/L Normal 98-107 [facility] Comment on above: Performed By: #### L 501.9520, L500.4100, L100.0100, L500.4050 ####[facility] [address] [place], [address] CO2 [Moles/Vol] 32.0 mmol/L Normal 21.0-32.0 [facility] Comment on above: Performed By: #### L 501.9520, L500.4100, L100.0100, L500.4050 ####[facility] [address] [place], [address] Creatinine [Mass/Vol] 1.11 mg/dL Normal 0.70-1.30 [facility] Comment on above: Result Comment: The validity of the calculated GFR GFRAA in patients over 70 years has not been determined. Clinical correlation is essential. Performed By: #### L 501.9520, L500.4100, L100.0100, L500.4050 ####[facility] [address] [place], [address] EST GFR - AA 96 mL/min Normal >60 [facility] Comment on above: Result Comment: Afri can [place] GFR Calc Performed By: #### L 501.9520, L500.4100, L100.0100, L500.4050 ####[facility] [address] [place], [address] GAP 2 Low 5-15 [facility] Comment on above: Performed By: #### L 501.9520, L500.4100, L100.0100, L500.4050 ####[facility] [address] [place], [address] GFR/1.73 sq M.predicted among non-blacks MDRD (S/P/Bld) [Vol rate/Area] 79 mL/min/{1.73_m2} Normal >60 [facility] Comment on above: Result Comment: Non- GFR Calc Performed By: #### L 501.9520, L500.4100, L100.0100, L500.4050 ####[facility] [address] [place], [address] Globulin (S) [Mass/Vol] 3.1 g/dL Normal 2.2-4.2 [facility] Comment on above: Performed By: #### L 501.9520, L500.4100, L100.0100, L500.4050 ####[facility] [address] [place], [address] Glucose [Mass/Vol] 82 mg/dL Normal 74-106 [facility] Comment on above: Performed By: #### L 501.9520, L500.4100, L100.0100, L500.4050 ####[facility] [address] [place], [address] Potassium [Moles/Vol] 4.2 mmol/L Normal 3.5-5.1 [facility] Comment on above: Performed By: #### L 501.9520, L500.4100, L100.0100, L500.4050 ####[facility] [address] [place], [address] Sodium [Moles/Vol] 140 mmol/L Normal 136-145 [facility] Comment on above: Performed By: #### L 501.9520, L500.4100, L100.0100, L500.4050 ####[facility] [address] [place], [address] T PROT 6.9 g/dL Normal 6.4-8.2 [facility] Comment on above: Performed By: #### L 501.9520, L500.4100, L100.0100, L500.4050 ####[facility] [address] [place], [address] Urea nitrogen [Mass/Vol] 13 mg/dL Normal 7-18 [facility] Comment on above: Performed By: #### L 501.9520, L500.4100, L100.0100, L500.4050 ####[facility] [address] [place], [address] Eosinophil percentageOrdered By: Duane Edouard on 04-29-2024 Eosinophils/100 WBC (Bld) 6.0 % High 0-5 [facility] Erythrocyte distribution wid th ratioOrdered By: Duane Stubbsok on 04-29-2024 Erythrocyte distribution width (RBC) [Ratio] 13.0 % 11.6-14.6 [facility] Erythrocyte distribution wid th standard deviationOrdered By: Duane Edouard on 04-29-2024 Erythrocyte distribution width (RBC) [Entitic vol] 44.4 fL High 35.1-43.9 [facility] Estimated glomerular filtrat ion rate (GFR) AmericanOrdered By: Duane Edouard on 04-29-2024 Estimated GFR (MDRD) Amer 96 mL/min >60 [facility] Comment on above: GFR Calc Glomerular filtration rate ( GFR) estimationOrdered By: Duane Edouard on 04-29-2024 Estimated GFR (MDRD) Non-Af Amer 79 mL/min >60 [facility] Comment on above: Non- GFR Calc Glucose measurementOrdered B y: Duane Edouard on 04-29-2024 Glucose [Mass/Vol] 82 mg/dL 74-106 [facility] Hematocrit Auto (Bld) [Volum e fraction]Ordered By: Duane Edouard 04-29-2024 Hematocrit (Bld) [Volume fraction] 51.7 % 40-54 [facility] Hemoglobin measurementOrdere d By: Duane Edouard 04-29-2024 Hemoglobin (Bld) [Mass/Vol] 17.0 g/dL High 13.0-16.5 [facility] High density lipoprotein (HD L) measurementOrdered By: Duane Edouard 04-29-2024 Cholesterol in HDL [Mass/Vol] 20 mg/dL Low >40 [facility] Comment on above: The drugs N-Acetylcy steine and Metamizole may falsely depress this assay. Reference Range HDL <40 mg/dL Low HDL Cholesterol HDL >or= 60 mg/dL High HDL Cholesterol Immature granulocytes/100 WB C Auto (Bld)Ordered By: Duane Edouard on 04-29-2024 Immature granulocytes/100 WBC (Bld) 0.800 % 0.0-0.9 [facility] Comment on above: IG% - Immature Granu locytes (promyelocytes, myelocytes and metamyelocytes) > 1% indicates that a LEFT SHIFT is Present. Laboratory - Chemistry and C hemistry - challengeOrdered By: Duane Edouard on 04-29-2024 AST [Catalytic activity/Vol] 26 U/L 15-37 [facility] Lipid Profileon 04-29-2024 Cholesterol [Mass/Vol] 144 mg/dL Normal 200 [facility] Comment on above: Result Comment: <200 mg/dL Desirable 200-240 mg/dL Borderline >240 mg/dL High Risk Performed By: #### L 501.9520, L500.4100, L100.0100, L500.4050 ####[facility] [address] [place], [address] Cholesterol in HDL [Mass/Vol] 20 mg/dL Low [facility] Comment on above: Result Comment: The drugs N-Acetylcysteine and Metamizole may falsely depress this assay. Reference Range HDL <40 mg/dL Low HDL Cholesterol HDL >or= 60 mg/dL High HDL Cholesterol Performed By: #### L 501.9520, L500.4100, L100.0100, L500.4050 ####[facility] [address] [place], [address] Cholesterol in LDL [Mass/Vol] 89 mg/dL Normal 0-130 [facility] Comment on above: Performed By: #### L 501.9520, L500.4100, L100.0100, L500.4050 ####[facility] [address] [place], [address] Cholesterol in VLDL [Mass/Vol] 35 mg/dL Normal 5-40 [facility] Comment on above: Performed By: #### L 501.9520, L500.4100, L100.0100, L500.4050 ####[facility] [address] [place], [address] Triglyceride [Mass/Vol] 173 mg/dL Normal [facility] Comment on above: Result Comment: The drugs N-Acetylcysteine and Metamizole may falsely depress this assay. Serum Triglycerides Reference Interval Normal <150 mg/dL Borderline high 150 - 199 mg/dL High 200 - 499 mg/dL Very High > or = 500 mg/dL Performed By: #### L 501.9520, L500.4100, L100.0100, L500.4050 ####[facility] [address] [place], [address] Low density lipoprotein (LDL ) cholesterol measurementOrdered By: Duane Edouard on 04-29-2024 Cholesterol in LDL [Mass/Vol] 89 mg/dL 0-130 [facility] Lymphocytes Auto (Unsp spec) [#/Vol]Ordered By: Duane Edouard on 04-29-2024 Lymphocytes (Bld) [#/Vol] 2.29 10*3/uL 0.83-4.[address] [facility] Lymphocytes/100 WBC Auto (Un sp spec)Ordered By: Duane Edouard on 04-29-2024 Lymphocytes/100 WBC (Bld) 29.7 % 19-41 [facility] MCV (mean corpuscular volume ) determinationOrdered By: Duane Edouard on 04-29-2024 MCV (RBC) [Entitic vol] 93.2 fL 80-94 [facility] Mean corpuscular hemoglobin (MCH) determinationOrdered By: Duane Edouard on 04-29-2024 MCH (RBC) [Entitic mass] 30.6 pg 27.0-32.0 [facility] Mean corpuscular hemoglobin concentration (MCHC) determinationOrdered By: Duane Edouard on 04-29-2024 MCHC (RBC) [Mass/Vol] 32.9 g/dL 32-36 [facility] Mean platelet volume determi nationOrdered By: Duane Edouard on 04-29-2024 Platelet mean volume (Bld) [Entitic vol] 11.3 fL 6.2-12.0 [facility] Monocyte percentageOrdered B y: Duane Edouard on 04-29-2024 Monocytes/100 WBC (Bld) 10.1 % High 0-10 [facility] Neutrophil percentageOrdered By: Duane Edouard on 04-29-2024 Neutrophils/100 WBC (Bld) 52.4 % 47-70 [facility] Nucleated red blood cell per centageOrdered By: Duane Edouard on 04-29-2024 Nucleated RBC/100 WBC (Bld) [Ratio] 0 % 0-5 [facility] Platelet countOrdered By: Akil Edouard on 04-29-2024 Platelets (Bld) [#/Vol] 126 10*3/uL Low 150-450 [facility] Potassium measurementOrdered By: Duane Edouard on 04-29-2024 Potassium [Moles/Vol] 4.2 mmol/L 3.5-5.1 [facility] RBC Auto (Bld) [#/Vol]Ordere d By: Duane Edouard on 04-29-2024 RBC (Bld) [#/Vol] 5.55 10*6/uL 4.6-6.2 [facility] Serum anion gap measurementO rdered By: Duane Edouard on 04-29-2024 Anion gap [Moles/Vol] 2 mmol/L Low 5-15 [facility] Serum globulin measurementOr dered By: Duane Edouard on 04-29-2024 Globulin (S) [Mass/Vol] 3.1 g/dL 2.2-4.2 [facility] Serum or plasma alanine lloyd otransferase (ALT) measurementOrdered By: Duane Edouard on 04-29-2024 ALT [Catalytic activity/Vol] 61 U/L 16-61 [facility] Serum or plasma albumin jeanie urement (mass/volume)Ordered By: Duane Edouard on 04-29-2024 Albumin [Mass/Vol] 3.8 g/dL 3.2-5.0 [facility] Serum or plasma alkaline feng sphatase measurementOrdered By: Duane Edouard on 04-29-2024 ALP [Catalytic activity/Vol] 98 U/L 45-117 [facility] Serum or plasma calcium jeanie urement (mass/volume)Ordered By: Duane Edouard on 04-29-2024 Calcium [Mass/Vol] 9.2 mg/dL 8.5-10.1 [facility] Serum or plasma cholesterol measurement (mass/volume)Ordered By: Duane Edouard on 04-29-2024 Cholesterol [Mass/Vol] 144 mg/dL <200 [facility] Comment on above: <200 mg/dL Desirable 200-240 mg/dL Borderline >240 mg/dL High Risk Serum or plasma creatinine m easurement (mass/volume)Ordered By: Duane Edouard on 04-29-2024 Creatinine [Mass/Vol] 1.11 mg/dL 0.70-1.30 [facility] Comment on above: The validity of the calculated GFR & GFRAA in patients over 70 years has not been determined. Clinical correlation is essential. Serum or plasma urea nitroge n measurement (mass/volume)Ordered By: Duane Edouard on 04-29-2024 Urea nitrogen [Mass/Vol] 13 mg/dL 7-18 [facility] Sodium levelOrdered By: Duane Edouard on 04-29-2024 Sodium [Moles/Vol] 140 mmol/L 136-145 [facility] TSH QnOrdered By: Duane sullivan n 04-29-2024 Thyroid Stimulating Hormone (TSH) 0.559 uIU/mL 0.358-3.740 [facility] Thyroid Stim Hormone (TSH)on 04-29-2024 TSH 0.559 uIU/mL Normal 0.358-3.740 [facility] Comment on above: Performed By: #### L 501.9520, L500.4100, L100.0100, L500.4050 ####[facility] [id number] [place], [place], [address] Total proteinOrdered By: Duane Edouard on 04-29-2024 Protein [Mass/Vol] 6.9 g/dL 6.4-8.2 [facility] Triglycerides measurementOrd ered By: Duane Edouard on 04-29-2024 Triglyceride [Mass/Vol] 173 mg/dL <199 [facility] Comment on above: The drugs N-Acetylcy steine and Metamizole may falsely depress this assay.Serum Triglycerides Reference Interval Normal <150 mg/dL Borderline high 150 - 199 mg/dL High 200 - 499 mg/dL Very High > or = 500 mg/dL Very low density lipoprotein (VLDL) cholesterol measurementOrdered By: Duane Edouard on 04-29-2024 VLDL Cholesterol 35 mg/dL 5-40 [facility] White blood cell (WBC) count Ordered By: Duane Edouard on 04-29-2024 WBC (Bld) [#/Vol] 7.7 10*3/uL 4.4-11.0 [facility] CBC W Auto Differential pane l (Bld)on 02-19-2024 Basophils (Bld) [#/Vol] 0.07 10*3/uL Normal <0.11 [facility] Comment on above: Order Comment: Speci men Type: BLOOD SPECIMEN Ordering Facility: [facility] Address: [address] [place] [address] Performed By: #### 5 7021-8 #### [facility] CLIA [id number] [address] [place] [address] [place] Basophils/100 WBC (Bld) 0.8 % Normal [facility] Comment on above: Order Comment: Speci men Type: BLOOD SPECIMEN [facility] Address: [address] [place] [address] Performed By: #### 5 7021-8 #### [facility] CLIA [id number] [address] [place] [address] [place] Differential cell count method Nom (Bld) Auto Normal [facility] Comment on above: Order Comment: Speci men Type: BLOOD SPECIMEN [facility] Address: [address] [place] [address] Performed By: #### 5 7021-8 #### [facility] CLIA [id number] [address] [place] [address] [place] Eosinophils (Bld) [#/Vol] 0.42 10*3/uL Normal <0.46 [facility] Comment on above: Order Comment: Speci men Type: BLOOD SPECIMEN Ordering Facility: [facility] Address: [address] [place] [address] Performed By: #### 5 7021-8 #### [facility] CLIA [id number] [address] [place] [address] [place] Eosinophils/100 WBC (Bld) 4.6 % Normal [facility] Comment on above: Order Comment: Speci men Type: BLOOD SPECIMEN Ordering Facility: [facility] Address: [address] [place] [address] Performed By: #### 5 7021-8 #### [facility] CLIA [id number] [address] [place] [address] [place] Erythrocyte distribution width (RBC) [Ratio] 13.0 % Normal 11.5-15.0 [facility] Comment on above: Order Comment: Speci men Type: BLOOD SPECIMEN Ordering Facility: [facility] Address: [address] [place] [address] Performed By: #### 5 7021-8 #### [facility] CLIA [id number] [address] [place] [address] [place] Hematocrit (Bld) [Volume fraction] 50.3 % Normal 39.0-51.0 [facility] Comment on above: Order Comment: Speci men Type: BLOOD SPECIMEN Ordering Facility: [facility] Address: [address] [place] [address] Performed By: #### 5 7021-8 #### [facility] CLIA [id number] [address] [place] [address] [place] Hemoglobin (Bld) [Mass/Vol] 16.9 g/dL Normal 13.0-17.0 [facility] Comment on above: Order Comment: Speci men Type: BLOOD SPECIMEN [facility] Address: [address] [place] [address] Performed By: #### 5 7021-8 #### [facility] CLIA [id number] [address] [place] [address] [place] Immature granulocytes (Bld) [#/Vol] 0.08 10*3/uL Normal <0.10 [facility] Comment on above: Order Comment: Speci men Type: BLOOD SPECIMEN Ordering Facility: [facility] Address: [address] [place] [address] Performed By: #### 5 7021-8 #### [facility] CLIA [id number] [address] [place] [address] [place] Immature granulocytes/100 WBC (Bld) 0.9 % Normal [facility] Comment on above: Order Comment: Speci men Type: BLOOD SPECIMEN Ordering Facility: [facility] Address: [address] [place] [address] Performed By: #### 5 7021-8 #### [facility] CLIA [id number] [address] [place] [address] [place] Lymphocytes (Bld) [#/Vol] 3.07 10*3/uL Normal 1.00-4.0 0 [facility] Comment on above: Order Comment: Speci men Type: BLOOD SPECIMEN [facility] Address: [address] [place] [address] Performed By: #### 5 7021-8 #### [facility] CLIA [id number] [address] [place] [address] [place] Lymphocytes/100 WBC (Bld) 33.3 % Normal [facility] Comment on above: Order Comment: Speci men Type: BLOOD SPECIMEN Ordering Facility: [facility] Address: [address] [place] [address] Performed By: #### 5 7021-8 #### [facility] CLIA [id number] [address] [place] [address] [place] MCH (RBC) [Entitic mass] 30.3 pg Normal 26.0-34.0 [facility] Comment on above: Order Comment: Speci men Type: BLOOD SPECIMEN Ordering Facility: [facility] Address: [address] [place] [address] Performed By: #### 5 7021-8 #### [facility] CLIA [id number] [address] [place] [address] [place] MCHC (RBC) [Mass/Vol] 33.6 g/dL Normal 30.5-36.0 [facility] Comment on above: Order Comment: Speci men Type: BLOOD SPECIMEN Ordering Facility: [facility] Address: [address] [place] [address] Performed By: #### 5 7021-8 #### [facility] CLIA [id number] [address] [place] [address] [place] MCV (RBC) [Entitic vol] 90.3 fL Normal 80.0-100.0 [facility] Comment on above: Order Comment: Speci men Type: BLOOD SPECIMEN Ordering Facility: [facility] Address: [address] [place] [address] Performed By: #### 5 7021-8 #### [facility] CLIA [id number] [address] [place] [address] [place] Monocytes (Bld) [#/Vol] 0.90 10*3/uL High <0.87 [facility] Comment on above: Order Comment: Speci men Type: BLOOD SPECIMEN Ordering Facility: [facility] Address: [address] [place] [address] Performed By: #### 5 7021-8 #### [facility] CLIA [id number] [address] [place] [address] [place] Monocytes/100 WBC (Bld) 9.8 % Normal C [facility] Comment on above: Order Comment: Speci men Type: BLOOD SPECIMEN Ordering Facility: [facility] Address: [address] [place] [address] Performed By: #### 5 7021-8 #### [facility] CLIA [id number] [address] [place] [address] [place] Neutrophils (Bld) [#/Vol] 4.69 10*3/uL Normal 1.45-7.5 0 [facility] Comment on above: Order Comment: Speci men Type: BLOOD SPECIMEN Ordering Facility: [facility] Address: [address] [place] [address] Performed By: #### 5 7021-8 #### [facility] CLIA [id number] [address] [place] [address] [place] Neutrophils/100 WBC (Bld) 50.6 % Normal [facility] Comment on above: Order Comment: Speci men Type: BLOOD SPECIMEN Ordering Facility: [facility] Address: [address] [place] [address] Performed By: #### 5 7021-8 #### [facility] CLIA [id number] [address] [place] [address] [place] Nucleated RBC (Bld) [#/Vol] 10*3/uL Normal <0.01 [facility] Comment on above: Order Comment: Speci men Type: BLOOD SPECIMEN [facility] Address: [address] [place] [address] Performed By: #### 5 7021-8 #### [facility] CLIA [id number] [address] [place] [address] [place] Nucleated RBC/100 WBC (Bld) [Ratio] 0.0 /100 WBC Normal [facility] Comment on above: Order Comment: Speci men Type: BLOOD SPECIMEN Ordering Facility: [facility] Address: [address] [place] [address] Performed By: #### 5 7021-8 #### [facility] CLIA [id number] [address] [place] [address] [place] Platelet mean volume (Bld) [Entitic vol] 11.4 fL Normal 9.0-12.7 [facility] Comment on above: Order Comment: Speci men Type: BLOOD SPECIMEN Ordering Facility: [facility] Address: [address] [place] [address] Performed By: #### 5 7021-8 #### [facility] CLIA [id number] [address] [place] [address] [place] Platelets (Bld) [#/Vol] 151 10*3/uL Normal 150-400 [facility] Comment on above: Order Comment: Speci men Type: BLOOD SPECIMEN Ordering Facility: [facility] Address: [address] [place] [address] Performed By: #### 5 7021-8 #### [facility] CLIA [id number] [address] [place] [address] [place] RBC (Bld) [#/Vol] 5.57 10*6/uL Normal 4.20-6.00 [facility] Comment on above: Order Comment: Speci men Type: BLOOD SPECIMEN Ordering Facility: [facility] Address: [address] [place] [address] Performed By: #### 5 7021-8 #### [facility] CLIA [id number] [address] [place] [address] [place] WBC (Bld) [#/Vol] 9.23 10*3/uL Normal 3.70-11.00 [facility] Comment on above: Order Comment: Speci men Type: BLOOD SPECIMEN Ordering Facility: [facility] Address: [address] [place] [address] Performed By: #### 5 7021-8 #### [facility] CLIA [id number] [address] [place] [id number] [place] CBC W Auto Differential pane l (Bld)on 10-23-2023 Basophils (Bld) [#/Vol] 0.07 10*3/uL Normal <0.11 [facility] Comment on above: Order Comment: Speci men Type: BLOOD SPECIMEN Ordering Facility: [facility] Address: [address] [place] [address] Performed By: #### 5 7021-8 #### [facility] CLIA [id number] [address] [place] [address] [place] Basophils/100 WBC (Bld) 1.0 % Normal [facility] Comment on above: Order Comment: Speci men Type: BLOOD SPECIMEN Ordering Facility: [facility] Address: [address] [place] [address] Performed By: #### 5 7021-8 #### [facility] CLIA [id number] [address] [place] [address] [place] Differential cell count method Nom (Bld) Auto Normal [facility] Comment on above: Order Comment: Speci men Type: BLOOD SPECIMEN [facility] Address: [address] [place] [address] Performed By: #### 5 7021-8 #### [facility] CLIA [id number] [address] [place] [address] [place] Eosinophils (Bld) [#/Vol] 0.36 10*3/uL Normal <0.46 [facility] Comment on above: Order Comment: Speci men Type: BLOOD SPECIMEN Ordering Facility: [facility] Address: [address] [place] [address] Performed By: #### 5 7021-8 #### [facility] CLIA [id number] [address] [place] [address] [place] Eosinophils/100 WBC (Bld) 4.9 % Normal [facility] Comment on above: Order Comment: Speci men Type: BLOOD SPECIMEN Ordering Facility: [facility] Address: [address] [place] [address] Performed By: #### 5 7021-8 #### [facility] CLIA [id number] [address] [place] [address] [place] Erythrocyte distribution width (RBC) [Ratio] 12.7 % Normal 11.5-15.0 [facility] Comment on above: Order Comment: Speci men Type: BLOOD SPECIMEN Ordering Facility: [facility] Address: [address] [place] [address] Performed By: #### 5 7021-8 #### [facility] CLIA [id number] [address] [place] [address] [place] Hematocrit (Bld) [Volume fraction] 52.2 % High 39.0-51.0 [facility] Comment on above: Order Comment: Speci men Type: BLOOD SPECIMEN [facility] Address: [address] [place] [address] Performed By: #### 5 7021-8 #### [facility] CLIA [id number] [address] [place] [address] [place] Hemoglobin (Bld) [Mass/Vol] 17.0 g/dL Normal 13.0-17.0 [facility] Comment on above: Order Comment: Speci men Type: BLOOD SPECIMEN [facility] Address: [address] [place] [address] Performed By: #### 5 7021-8 #### [facility] CLIA [id number] [address] [place] [address] [place] Immature granulocytes (Bld) [#/Vol] 0.05 10*3/uL Normal <0.10 [facility] Comment on above: Order Comment: Speci men Type: BLOOD SPECIMEN [facility] Address: [address] [place] [address] Performed By: #### 5 7021-8 #### [facility] CLIA [id number] [address] [place] [address] [place] Immature granulocytes/100 WBC (Bld) 0.7 % Normal [facility] Comment on above: Order Comment: Speci men Type: BLOOD SPECIMEN Ordering Facility: [facility] Address: [address] [place] [address] Performed By: #### 5 7021-8 #### [facility] CLIA [id number] [address] [place] [address] [place] Lymphocytes (Bld) [#/Vol] 2.39 10*3/uL Normal 1.00-4.0 0 [facility] Comment on above: Order Comment: Speci men Type: BLOOD SPECIMEN Ordering Facility: [facility] Address: [address] [place] [address] Performed By: #### 5 7021-8 #### [facility] CLIA [id number] [address] [place] [address] [place] Lymphocytes/100 WBC (Bld) 32.6 % Normal [facility] Comment on above: Order Comment: Speci men Type: BLOOD SPECIMEN Ordering Facility: [facility] Address: [address] [place] [address] Performed By: #### 5 7021-8 #### [facility] CLIA [id number] [address] [place] [address] [place] MCH (RBC) [Entitic mass] 29.8 pg Normal 26.0-34.0 [facility] Comment on above: Order Comment: Speci men Type: BLOOD SPECIMEN Ordering Facility: [facility] Address: [address] [place] [address] Performed By: #### 5 7021-8 #### [facility] CLIA [id number] [address] [place] [address] [place] MCHC (RBC) [Mass/Vol] 32.6 g/dL Normal 30.5-36.0 [facility] Comment on above: Order Comment: Speci men Type: BLOOD SPECIMEN Ordering Facility: [facility] Address: [address] [place] [address] Performed By: #### 5 7021-8 #### [facility] CLIA [id number] [address] [place] [address] [place] MCV (RBC) [Entitic vol] 91.4 fL Normal 80.0-100.0 C [facility] Comment on above: Order Comment: Speci men Type: BLOOD SPECIMEN Ordering Facility: [facility] Address: [address] [place] [address] Performed By: #### 5 7021-8 #### [facility] CLIA [id number] [address] [place] [address] [place] Monocytes (Bld) [#/Vol] 0.54 10*3/uL Normal <0.87 [facility] Comment on above: Order Comment: Speci men Type: BLOOD SPECIMEN Ordering Facility: [facility] Address: [address] [place] [address] Performed By: #### 5 7021-8 #### [facility] CLIA [id number] [address] [place] [address] [place] Monocytes/100 WBC (Bld) 7.4 % Normal C [facility] Comment on above: Order Comment: Speci men Type: BLOOD SPECIMEN Ordering Facility: [facility] Address: [address] [place] [address] Performed By: #### 5 7021-8 #### [facility] CLIA [id number] [facility] [place] [address] [place] Neutrophils (Bld) [#/Vol] 3.92 10*3/uL Normal 1.45-7.5 0 [facility] Comment on above: Order Comment: Speci men Type: BLOOD SPECIMEN Ordering Facility: [facility] Address: [address] [place] [address] Performed By: #### 5 7021-8 #### [facility] CLIA [id number] [address] [place] [address] [place] Neutrophils/100 WBC (Bld) 53.4 % Normal [facility] Comment on above: Order Comment: Speci men Type: BLOOD SPECIMEN [facility] Address: [address] [place] [address] Performed By: #### 5 7021-8 #### [facility] CLIA [id number] [address] [place] [address] [place] Nucleated RBC (Bld) [#/Vol] 10*3/uL Normal <0.01 [facility] Comment on above: Order Comment: Speci men Type: BLOOD SPECIMEN [facility] Address: [address] [place] [address] Performed By: #### 5 7021-8 #### [facility] CLIA [id number] [address] [place] [address] [place] Nucleated RBC/100 WBC (Bld) [Ratio] 0.0 /100 WBC Normal [facility] Comment on above: Order Comment: Speci men Type: BLOOD SPECIMEN [facility] Address: [address] [place] [address] Performed By: #### 5 7021-8 #### [facility] CLIA [id number] [address] [place] [address] [place] Platelet mean volume (Bld) [Entitic vol] 12.0 fL Normal 9.0-12.7 [facility] Comment on above: Order Comment: Speci men Type: BLOOD SPECIMEN Ordering Facility: [facility] Address: [address] [place] [address] Performed By: #### 5 7021-8 #### [facility] CLIA [id number] [address] [place] [address] [place] Platelets (Bld) [#/Vol] 133 10*3/uL Low 150-400 [facility] Comment on above: Order Comment: Speci men Type: BLOOD SPECIMEN Ordering Facility: [facility] Address: [address] [place] [address] Performed By: #### 5 7021-8 #### [facility] CLIA [id number] [address] [place] [address] [place] RBC (Bld) [#/Vol] 5.71 10*6/uL Normal 4.20-6.00 [facility] Comment on above: Order Comment: Speci men Type: BLOOD SPECIMEN Ordering Facility: [facility] Address: [address] [place] [address] Performed By: #### 5 7021-8 #### [facility] CLIA [id number] [address] [place] [address] [place] WBC (Bld) [#/Vol] 7.33 10*3/uL Normal 3.70-11.00 [facility] Comment on above: Order Comment: Speci men Type: BLOOD SPECIMEN Ordering Facility: [facility] Address: [address] [place] [address] Performed By: #### 5 7021-8 #### [facility] CLIA [id number] [address] [place], [place] [address] [place] Comprehensive metabolic 2000 panelon 10-23-2023 Albumin [Mass/Vol] 4.5 g/dL Normal 3.9-4.9 [facility] Comment on above: Order Comment: Speci men Type: BLOOD SPECIMEN Ordering Facility: [facility] Address: [address] [place] [address] Performed By: #### 2 4331-1, 57625-8 #### [facility] CLIA [id number] [address] [place] [address] [place] ALP [Catalytic activity/Vol] 108 U/L Normal 38-113 [facility] Comment on above: Order Comment: Speci men Type: BLOOD SPECIMEN Ordering Facility: [facility] Address: [address] [place] [address] Performed By: #### 2 4331-1, 00041-6 #### [facility] CLIA [id number] [address] [place] [address] [place] ALT [Catalytic activity/Vol] 36 U/L Normal 10-54 [facility] Comment on above: Order Comment: Speci men Type: BLOOD SPECIMEN Ordering Facility: [facility] Address: [address] [place] [address] Performed By: #### 2 4331-1, 35165-0 #### [facility] CLIA [id number] [address] [place] [address] [place] Anion gap [Moles/Vol] 15 mmol/L Normal 9-18 [facility] Comment on above: Order Comment: Speci men Type: BLOOD SPECIMEN Ordering Facility: [facility] Address: [address] [place] [address] Performed By: #### 2 4331-1, 31529-9 #### [facility] CLIA [id number] [address] [place] [address] [place] AST [Catalytic activity/Vol] 25 U/L Normal 14-40 [facility] Comment on above: Order Comment: Speci men Type: BLOOD SPECIMEN Ordering Facility: [facility] Address: [address] [place] [address] Performed By: #### 2 4331-1, 02681-7 #### [facility] CLIA [id number] [address] [address] [place] Bilirubin [Mass/Vol] 1.1 mg/dL Normal 0.2-1.3 [facility] Comment on above: Order Comment: Speci men Type: BLOOD SPECIMEN Ordering Facility: [facility] Address: [address] [place] [address] Performed By: #### 2 433-1, #### [facility] CLIA [id number] [address] [address] [place] Calcium [Mass/Vol] 9.9 mg/dL Normal 8.5-10.2 [facility] Comment on above: Order Comment: Speci men Type: BLOOD SPECIMEN Ordering Facility: [facility] Address: [address] [place] [address] Performed By: #### 2 433-, #### [facility] CLIA [id number] [address] [place] [address] [place] Chloride [Moles/Vol] 101 mmol/L Normal 97-105 [facility] Comment on above: Order Comment: Speci men Type: BLOOD SPECIMEN Ordering Facility: [facility] Address: [address] [place] [address] Performed By: #### 2 433-, #### [facility] CLIA [id number] [address] [address] [place] CO2 [Moles/Vol] 26 mmol/L Normal 22-30 [facility] Comment on above: Order Comment: Speci men Type: BLOOD SPECIMEN Ordering Facility: [facility] Address: [address] [place] [address] Performed By: #### 2 4331-1, 65753-1 #### [facility] CLIA [id number] [address] [place] [address] [place] Creatinine [Mass/Vol] 1.19 mg/dL Normal 0.73-1.22 [facility] Comment on above: Order Comment: Thad sheriff Type: BLOOD SPECIMEN Ordering Facility: [facility] Address: [address] [place] [address] Performed By: #### 2 4331-1, 11615-0 #### [facility] CLIA [id number] [facility] [place] [address] [place] Creatinine and Glomerular filtration rate.predicted panel (S/P/Bld) 81 mL/min/1.73m??? Normal >=60 [facility] Comment on above: Order Comment: Thad sheriff Type: BLOOD SPECIMEN Ordering Facility: [facility] Address: [address] [place] [address] Result Comment: Neli mated Glomerular Filtration Rate (eGFR) is calculated using the 2020 CKD-EPI creatinine equation. This equation utilizes serum creatinine, sex, and age as parameters. The creatinine assay has traceable calibration to isotope dilution-mass spectrometry. Refer to KDIGO guidelines for clinical interpretation. In patients with unstable renal function, e.g. those with acute kidney injury, the eGFR may not accurately reflect actual GFR. Performed By: #### 2 4331-1, 91454-2 #### [facility] CLIA [id number] [address] [place], [place] [id number] [place] Glucose [Mass/Vol] 89 mg/dL Normal 74-99 [facility] Comment on above: Order Comment: Thad sharita Type: BLOOD SPECIMEN Ordering Facility: [facility] Address: [address] [place] [address] Result Comment: The [place] Diabetes Association (ADA) provides guidance for cutoff values for fasting glucose and random glucose. The ADA defines fasting as no caloric intake for at least 8 hours. Fasting plasma glucose results between 100 to 125 mg/dL indicate increased risk for diabetes (prediabetes). Fasting plasma glucose results greater than or equal to 126 mg/dL meet the criteria for diagnosis of diabetes. In the absence of unequivocal hyperglycemia, results should be confirmed by repeat testing. In a patient with classic symptoms of hyperglycemia or hyperglycemic crisis, random plasma glucose results greater than or equal to 200 mg/dL meet the criteria for diagnosis of diabetes. Reference: Standards of Medical Care in Diabetes 2016, [place] Diabetes Association. Diabetes Care. 2016.39(Suppl 1). Performed By: #### 2 4331-1, 96524-1 #### [facility] CLIA [id number] [address] [address] [place] Potassium [Moles/Vol] 4.5 mmol/L Normal 3.7-5.1 [facility] Comment on above: Order Comment: Thad sheriff Type: BLOOD SPECIMEN Ordering Facility: [facility] Address: [address] [place] [address] Performed By: #### 2 4331-, 34735-3 #### [facility] CLIA [id number] [address] [place] [address] [place] Protein [Mass/Vol] 6.9 g/dL Normal 6.3-8.0 [facility] Comment on above: Order Comment: Thad sheriff Type: BLOOD SPECIMEN [facility] Address: [address] [place] [address] Performed By: #### 2 4331-, 40644-7 #### [facility] CLIA [id number] [address] [place] [id number] [place] Sodium [Moles/Vol] 142 mmol/L Normal 136-144 [facility] Comment on above: Order Comment: Davei sharita Type: BLOOD SPECIMEN Ordering Facility: [facility] Address: [address] [place] [address] Performed By: #### 2 4331-1, 37657-1 #### [facility] CLIA [id number] [address] [address] [place] Urea nitrogen [Mass/Vol] 18 mg/dL Normal 9-24 [facility] Comment on above: Order Comment: Thad sheriff Type: BLOOD SPECIMEN Ordering Facility: [facility] Address: [address] [place] [address] Performed By: #### 2 4331-1, 30545-7 #### [facility] CLIA [id number] [address] [place] [address] [place] HbA1c (Bld)on 10-23-2023 Average glucose Estimated from glycated hemoglobin (Bld) [Mass/Vol] 82 mg/dL Normal [facility] Comment on above: Order Comment: Thad [facility] Type: BLOOD SPECIMEN Ordering Facility: [facility] Address: [address] [place] [address] Result Comment: eAG: (Estimated average glucose) is a calculated value from HgbA1c and is outside dealer sales representative of the average blood glucose level in the last 2-3 month period. Performed By: #### 5 5454-3 #### [facility] CLIA [id number] [address] [place] [address] [place] HbA1c (Bld) [Mass fraction] 4.5 % Normal 4.3-5.6 [facility] Comment on above: Order Comment: Thad sheriff Type: BLOOD SPECIMEN [facility] Address: [address] [place] [address] Result Comment: [place] Diabetes Association guidelines indicate that patients with HgbA1c in the range 5.7-6.4% are at increased risk for development of diabetes, and intervention by lifestyle modification may be beneficial. HgbA1c greater or equal to 6.5% is considered diagnostic of diabetes. Performed By: #### 5 5454-3 #### [facility] CLIA [id number] [address] [address] [place] Lipid 1996 panelon Cholesterol [Mass/Vol] 147 mg/dL Normal <200 [facility] Comment on above: Order Comment: Speci men Type: BLOOD SPECIMEN Ordering Facility: [facility] Address: [address] [place] [address] Result Comment: <200 mg/dL, Desirable 200-239 mg/dL, Borderline high >239 mg/dL, High Performed By: #### 2 4331-1, 43253-2 #### [facility] CLIA [id number] [address] [place] [address] [place] Cholesterol in HDL [Mass/Vol] 21 mg/dL Low >39 [facility] Comment on above: Order Comment: Speci men Type: BLOOD SPECIMEN Ordering Facility: [facility] Address: [address] [place] [address] Result Comment: 40-5 9 mg/dL, Acceptable >59 mg/dL, High: Negative risk factor for coronary heart disease <40 mg/dL, Low: Positive risk factor for coronary heart disease Performed By: #### 2 4331-1, 91314-7 #### [facility] CLIA [id number] [address] [place] [address] [place] Cholesterol in LDL [Mass/Vol] 88 mg/dL Normal <100 [facility] Comment on above: Order Comment: Speci men Type: BLOOD SPECIMEN Ordering Facility: [facility] Address: [address] [place] [address] Result Comment: <100 mg/dL, Optimal 100-129 mg/dL, Near optimal/above optimal 130-159 mg/dL, Borderline high 160-189 mg/dL, High >189 mg/dL, Very high Secondary prevention optimal LDL Cholesterol levels are recommended to be < 70 mg/dL Performed By: #### 2 4331-1, 86367-5 #### [facility] CLIA [id number] [address] [place] [id number] [place] Cholesterol in LDL/Cholesterol in HDL [Mass ratio] 4.19 {ratio} High <2.54 [facility] Comment on above: Order Comment: Speci men Type: BLOOD SPECIMEN Ordering Facility: [facility] Address: [address] [place] [address] Result Comment: Refmilka rodríguez: 1. National Cholesterol Education Program ATP III Guideline At-A-Glance Quick Desk Reference: National Heart, Lung, and Blood [place]. National Institutes of Health. 2001: NIH Publication No. 01-3305. 2. An International Atherosclerosis Society position paper: global recommendations for the management of dyslipidemia: executive summary, Atherosclerosis. 2014: 232(2):410-413. Performed By: #### 2 4331-1, 16153-3 #### [facility] CLIA [id number] [address] [place] [address] [place] Cholesterol in VLDL [Mass/Vol] 38 mg/dL High <30 [facility] Comment on above: Order Comment: Speci men Type: BLOOD SPECIMEN [facility] Address: [address] [place] [address] Performed By: #### 2 4331-1, 57530-8 #### [facility] CLIA [id number] [address] [place] [address] [place] Cholesterol non HDL [Mass/Vol] 126 mg/dL Normal <130 [facility] Comment on above: Order Comment: Speci men Type: BLOOD SPECIMEN [facility] Address: [address] [place] [address] Result Comment: <130 mg/dL, Optimal 130-159 mg/dL, Near optimal/above optimal 160-189 mg/dL, Borderline high 190-219 mg/dL, High >219 mg/dL, Very high Secondary prevention optimal non HDL Cholesterol levels are recommended to be <100 mg/dL Performed By: #### 2 4331-1, 13663-9 #### [facility] CLIA [id number] [address] [address] [place] Cholesterol.total/Cholest briseyda in HDL [Mass ratio] 7.00 {ratio} High <5.10 [facility] Comment on above: Order Comment: Speci men Type: BLOOD SPECIMEN Ordering Facility: [facility] Address: [address] [place] [address] Performed By: #### 2 4331-1, 54728-9 #### [facility] CLIA [id number] [address] [place] [address] [place] FASTING TIME 12 hrs Normal [facility] Comment on above: Order Comment: Speci men Type: BLOOD SPECIMEN Ordering Facility: [facility] Address: [address] [place] [address] Performed By: #### 2 4331-1, 52009-4 #### [facility] CLIA [id number] [address] [place] [address] [place] Triglyceride [Mass/Vol] 188 mg/dL High <150 [facility] Comment on above: Order Comment: Speci men Type: BLOOD SPECIMEN Ordering Facility: [facility] Address: [address] [place] [address] Result Comment: <150 mg/dL, Normal 150-199 mg/dL, Borderline high 200-499 mg/dL, High >499 mg/dL, Very high Performed By: #### 2 4331-1, 27484-6 #### [facility] CLIA [id number] [address] [place] [address] [place] TSH SerPl-aCncon 10-23-2023 TSH Qn 0.617 m[IU]/L Normal 0.270-4.200 [facility] Comment on above: Order Comment: Speci men Type: BLOOD SPECIMEN Ordering Facility: [facility] Address: [address] [place] [address] Performed By: #### 3 016-3 #### [facility] CLIA [id number] [address] [place] [address] [place] Absolute lymphocyte countOrd ered By: Duane Edouard on 04-22-2023 Lymphocytes Auto (Unsp spec) [#/Vol] 2.34 10*3/uL 0.83-4.51 [facility] Basophil percentageOrdered B y: Duane Edouard on 04-22-2023 Basophils/100 WBC (Bld) 0.8 % 0-1 [facility] Bilirubin [Mass/Vol] 0.80 mg/dL 0.20-1.00 [facility] Comment on above: For patients on eltr ombopag therapy, use of Dimension Wilmot TBIL is not recommended. Chloride [Moles/Vol] 107 mmol/L 98-107 [facility] Cholesterol [Mass/Vol] 143 mg/dL <200 [facility] Comment on above: <200 mg/dL Desirable 200-240 mg/dL Borderline >240 mg/dL High Risk Eosinophils/100 WBC (Bld) 5.2 % 0-5 [facility] Glucose [Mass/Vol] 94 mg/dL 74-106 [facility] Neutrophils (Bld) [#/Vol] 4.7 10*3/uL 2.0-7.7 [facility] Neutrophils/100 WBC (Bld) 56.6 % 47-70 [facility] Potassium [Moles/Vol] 4.2 mmol/L 3.5-5.1 [facility] Comment on above: Slight Hemolysis, Re sult may be falsely increased. Protein [Mass/Vol] 7.3 g/dL 6.4-8.2 [facility] Sodium [Moles/Vol] 140 mmol/L 136-145 [facility] Triglyceride [Mass/Vol] 484 mg/dL <199 [facility] Comment on above: The drugs N-Acetylcy steine and Metamizole may falsely depress this assay. TRIGLYCERIDE IS GREATER THAN 400 mg/dL. LDL RESULT IS INVALID AND WILL NOT BE REPORTED.Serum Triglycerides Reference Interval Normal <150 mg/dL Borderline high 150 - 199 mg/dL High 200 - 499 mg/dL Very High > or = 500 mg/dL WBC (Bld) [#/Vol] 8.2 10*3/uL 4.4-11.0 [facility] Blood erythrocytes count (nu mber/volume)Ordered By: Duane Edouard on 04-22-2023 RBC (Bld) [#/Vol] 5.88 10*6/uL 4.6-6.2 [facility] Blood hemoglobin measurement (mass/volume)Ordered By: Duane Edouard on 04-22-2023 Hemoglobin (Bld) [Mass/Vol] 17.4 g/dL 13.0-16.5 [facility] Blood lymphocytes/100 leukoc ytesOrdered By: [facility] on 04-22-2023 Lymphocytes/100 WBC (Bld) 28.4 % 19-41 [facility] Blood monocytes/100 leukocyt esOrdered By: Duane Natasha on 04-22-2023 Monocytes/100 WBC (Bld) 8.4 % 0-10 [facility] Blood platelet mean volumeOr dered By: [facility] on 04-22-2023 Platelet mean volume (Bld) [Entitic vol] 12.0 fL 6.2-12.0 [facility] Determination of erythrocyte mean corpuscular volume (MCV)Ordered By: Duane Natasha on 04-22-2023 MCV (RBC) [Entitic vol] 90.8 fL 80-94 [facility] Hematocrit Auto (Bld) [Volum e fraction]Ordered By: [facility] on 04-22-2023 Hematocrit (Bld) [Volume fraction] 53.4 % 40-54 [facility] Laboratory - Chemistry and C hemistry - challengeOrdered By: [facility] on 04-22-2023 ALP [Catalytic activity/Vol] 113 U/L 45-117 [facility] ALT [Catalytic activity/Vol] 41 U/L 16-61 [facility] CO2 [Moles/Vol] 31.0 mmol/L 21.0-32.0 [facility] Globulin (S) [Mass/Vol] 3.6 g/dL 2.2-4.2 [facility] Urea nitrogen/Creatinine [Mass ratio] 15.2 mg/mg 10-20 [facility] - Hematology and Cell countsOrdered By: Duane Natasha on 04-22-2023 Erythrocyte distribution width (RBC) [Entitic vol] 43.1 fL 35.1-43.9 [facility] Erythrocyte distribution width (RBC) [Ratio] 13.0 % 11.6-14.6 [facility] Immature granulocytes/100 WBC (Bld) 0.600 % 0.0-0.9 [facility] Comment on above: IG% - Immature Granu locytes (promyelocytes, myelocytes and metamyelocytes) > 1% indicates that a LEFT SHIFT is Present. MCH (RBC) [Entitic mass] 29.6 pg 27.0-32.0 [facility] Nucleated RBC/100 WBC (Bld) [Ratio] 0 % 0-5 [facility] MCHC Auto (RBC) [Mass/Vol]Or dered By: Duane Edouard on 04-22-2023 MCHC (RBC) [Mass/Vol] 32.6 g/dL 32-36 [facility] No Panel InformationOrdered By: Duane Edouard on 04-22-2023 Estimated GFR (MDRD) Amer 84 mL/min >60 [facility] Comment on above: GFR Calc Estimated GFR (MDRD) Non-Af Amer 69 mL/min >60 [facility] Comment on above: Non- GFR Calc Thyroid Stimulating Hormone (TSH) 0.65 uIU/mL 0.358-3.74 [facility] Platelets bldOrdered By: Duane Edouard on 04-22-2023 Platelets (Bld) [#/Vol] 152 10*3/uL 150-450 [facility] Serum or plasma albumin jeanie urement (mass/volume)Ordered By: Duane Edouard on 04-22-2023 Albumin [Mass/Vol] 3.7 g/dL 3.2-5.0 [facility] Serum or plasma albumin/glob ulin mass ratioOrdered By: Duane Edouard 04-22-2023 Albumin/Globulin [Mass ratio] 1.0 {ratio} 0.9-2.4 [facility] Serum or plasma calcium jeanie urement (mass/volume)Ordered By: Duane Edouard 04-22-2023 Calcium [Mass/Vol] 8.6 mg/dL 8.5-10.1 [facility] Serum or plasma cholesterol in HDL measurement (mass/volume)Ordered By: Duane Edouard on 04-22-2023 Cholesterol in HDL [Mass/Vol] 19 mg/dL >40 [facility] Comment on above: The drugs N-Acetylcy steine and Metamizole may falsely depress this assay. Reference Range HDL <40 mg/dL Low HDL Cholesterol HDL >or= 60 mg/dL High HDL Cholesterol Serum or plasma cholesterol in VLDL measurement (mass/volume)Ordered By: Duane Edouard on 04-22-2023 Cholesterol in VLDL [Mass/Vol] [facility] Comment on above: Test not performed Serum or plasma creatinine m easurement (mass/volume)Ordered By: Duane Edouard on 04-22-2023 Creatinine [Mass/Vol] 1.25 mg/dL 0.70-1.30 [facility] Comment on above: The validity of the calculated GFR & GFRAA in patients over 70 years has not been determined. Clinical correlation is essential. Serum or plasma low density lipoprotein (LDL) cholesterol measurement (mass/volume)Ordered By: Duane Edouard on 04-22-2023 Cholesterol in LDL [Mass/Vol] [facility] Comment on above: Test not performed Serum or plasma urea nitroge n measurement (mass/volume)Ordered By: Duane Edouard on 04-22-2023 Urea nitrogen [Mass/Vol] 19 mg/dL 7-18 [facility] Thin prep Papanicolaou smear with manual screeningOrdered By: Duane Edouard on 04-22-2023 Thin prep Papanicolaou smear with manual screening 23 U/L 15-37 [facility] Comment on above: Slight Hemolysis, Re sult may be falsely increased. Thin prep Papanicolaou smear with manual screening 2 5-15 [facility] Absolute lymphocyte countOrd ered By: Dr. Schofield on 08-21-2022 Lymphocytes Auto (Unsp spec) [#/Vol] 2.61 10*3/uL 0.83-4.51 [facility] Basophil percentageOrdered B y: Dr. Schofield on 08-21-2022 Basophils/100 WBC (Bld) 0.9 % 0-1 [facility] Bilirubin [Mass/Vol] 0.70 mg/dL 0.20-1.00 [facility] Comment on above: For patients on eltr ombopag therapy, use of Dimension [place] TBIL is not recommended. Chloride [Moles/Vol] 108 mmol/L 98-107 [facility] Cholesterol [Mass/Vol] 151 mg/dL <200 [facility] Comment on above: <200 mg/dL Desirable 200-240 mg/dL Borderline >240 mg/dL High Risk Eosinophils/100 WBC (Bld) 5.2 % 0-5 [facility] Glucose [Mass/Vol] 76 mg/dL 74-106 [facility] Neutrophils (Bld) [#/Vol] 4.2 10*3/uL 2.0-7.7 [facility] Neutrophils/100 WBC (Bld) 51.7 % 47-70 [facility] Potassium [Moles/Vol] 3.9 mmol/L 3.5-5.1 [facility] Protein [Mass/Vol] 7.4 g/dL 6.4-8.2 [facility] Sodium [Moles/Vol] 140 mmol/L 136-145 [facility] Triglyceride [Mass/Vol] 213 mg/dL <199 [facility] Comment on above: The drugs N-Acetylcy steine and Metamizole may falsely depress this assay.Serum Triglycerides Reference Interval Normal <150 mg/dL Borderline high 150 - 199 mg/dL High 200 - 499 mg/dL Very High > or = 500 mg/dL WBC (Bld) [#/Vol] 8.1 10*3/uL 4.4-11.0 [facility] Blood erythrocytes count (nu mber/volume)Ordered By: Dr. Schofield on 08-21-2022 RBC (Bld) [#/Vol] 5.50 10*6/uL 4.6-6.2 [facility] Blood hemoglobin measurement (mass/volume)Ordered By: Dr. Schofield on 08-21-2022 Hemoglobin (Bld) [Mass/Vol] 16.6 g/dL 13.0-16.5 [facility] Blood lymphocytes/100 leukoc ytesOrdered By: Dr. Schofield on 08-21-2022 Lymphocytes/100 WBC (Bld) 32.1 % 19-41 [facility] Blood monocytes/100 leukocyt esOrdered By: Dr. Schofield on 08-21-2022 Monocytes/100 WBC (Bld) 9.4 % 0-10 [facility] Blood platelet mean volumeOr dered By: Dr. Schofield on 08-21-2022 Platelet mean volume (Bld) [Entitic vol] 11.2 fL 6.2-12.0 [facility] Determination of erythrocyte mean corpuscular volume (MCV)Ordered By: Dr. Schofield on 08-21-2022 MCV (RBC) [Entitic vol] 91.1 fL 80-94 [facility] Hematocrit Auto (Bld) [Volum e fraction]Ordered By: Dr. Schofield on 08-21-2022 Hematocrit (Bld) [Volume fraction] 50.1 % 40-54 [facility] - Chemistry and C hemistry - challengeOrdered By: Dr. Schofield on 08-21-2022 ALP [Catalytic activity/Vol] 112 U/L 45-117 [facility] ALT [Catalytic activity/Vol] 54 U/L 16-61 [facility] CO2 [Moles/Vol] 29.0 mmol/L 21.0-32.0 [facility] Globulin (S) [Mass/Vol] 3.4 g/dL 2.2-4.2 [facility] Urea nitrogen/Creatinine [Mass ratio] 16.4 mg/mg 10-20 [facility] - Hematology and Cell countsOrdered By: Dr. Schofield on 08-21-2022 Erythrocyte distribution width (RBC) [Entitic vol] 43.7 fL 35.1-43.9 [facility] Erythrocyte distribution width (RBC) [Ratio] 13.0 % 11.6-14.6 [facility] Immature granulocytes/100 WBC (Bld) 0.700 % 0.0-0.9 [facility] Comment on above: IG% - Immature Granu locytes (promyelocytes, myelocytes and metamyelocytes) > 1% indicates that a LEFT SHIFT is Present. MCH (RBC) [Entitic mass] 30.2 pg 27.0-32.0 [facility] Nucleated RBC/100 WBC (Bld) [Ratio] 0 % 0-5 [facility] MCHC Auto (RBC) [Mass/Vol]Or dered By: Dr. Schofield on 08-21-2022 MCHC (RBC) [Mass/Vol] 33.1 g/dL 32-36 [facility] No Panel InformationOrdered By: Dr. Schofield on 08-21-2022 Estimated GFR (MDRD) Amer 92 mL/min >60 [facility] Comment on above: GFR Calc Estimated GFR (MDRD) Non-Af Amer 76 mL/min >60 [facility] Comment on above: Non- GFR Calc Platelets bldOrdered By: Dr. Schofield on 08-21-2022 Platelets (Bld) [#/Vol] 170 10*3/uL 150-450 [facility] Serum or plasma albumin jeanie urement (mass/volume)Ordered By: Dr. Schofield on 08-21-2022 Albumin [Mass/Vol] 4.0 g/dL 3.2-5.0 [facility] Serum or plasma albumin/glob ulin mass ratioOrdered By: Dr. Schofield on 08-21-2022 Albumin/Globulin [Mass ratio] 1.2 {ratio} 0.9-2.4 [facility] Serum or plasma calcium jeanie urement (mass/volume)Ordered By: Dr. Schofield on 08-21-2022 Calcium [Mass/Vol] 9.4 mg/dL 8.5-10.1 [facility] Serum or plasma cholesterol in HDL measurement (mass/volume)Ordered By: Dr. Schofield on 08-21-2022 Cholesterol in HDL [Mass/Vol] 25 mg/dL >40 [facility] Comment on above: The drugs N-Acetylcy steine and Metamizole may falsely depress this assay. Reference Range HDL <40 mg/dL Low HDL Cholesterol HDL >or= 60 mg/dL High HDL Cholesterol Serum or plasma cholesterol in VLDL measurement (mass/volume)Ordered By: Dr. Schofield on 08-21-2022 Cholesterol in VLDL [Mass/Vol] 43 mg/dL 5-40 [facility] Serum or plasma creatinine m easurement (mass/volume)Ordered By: Dr. Schofield on 08-21-2022 Creatinine [Mass/Vol] 1.16 mg/dL 0.70-1.30 [facility] Comment on above: The validity of the calculated GFR & GFRAA in patients over 70 years has not been determined. Clinical correlation is essential. Serum or plasma low density lipoprotein (LDL) cholesterol measurement (mass/volume)Ordered By: Dr. Schofield on 08-21-2022 Cholesterol in LDL [Mass/Vol] 83 mg/dL 0-130 [facility] Serum or plasma urea nitroge n measurement (mass/volume)Ordered By: Dr. Schofield on 08-21-2022 Urea nitrogen [Mass/Vol] 19 mg/dL 7-18 [facility] Thin prep Papanicolaou smear with manual screeningOrdered By: Dr. Schofield on 08-21-2022 Thin prep Papanicolaou smear with manual screening 32 U/L 15-37 [facility] Thin prep Papanicolaou smear with manual screening 3 5-15 [facility] Laboratory - Microbiology an d Antimicrobial susceptibilityon 06-04-2022 SARS-CoV-2 (COVID-19) RNA RASHEED+probe Ql (Unsp spec) Not detected [facility] No Panel Informationon 06-04 Influenza Types A,B Rapid (Clinic) Not detected [facility] Vital Signs Date Time Vital Sign Value Performing Clinician Faci lity 12-21-2024 15:22-0400 Body temperature 97.9 [degF] Dr. Duane Edouard MD Work Phone: [facility] 12-21-2024 15:22-0400 Diastolic blood pressure 79 mm[Hg] Dr. Duane Edouard MD Work Phone: [facility] 12-21-2024 15:22-0400 Heart rate 82 /min Dr. Duane Edouard MD Work Phone: [facility] 12-21-2024 15:22-0400 Respiratory rate 17 /min Dr. Duane Edouard MD Work Phone: [facility] 12-21-2024 15:22-0400 SaO2% (BldA) [Mass fraction] 100 % Dr. Duane Edouard MD Work Phone: [facility] 12-21-2024 15:22-0400 Systolic blood pressure 142 mm[Hg] Dr. Duane Edouard MD Work Phone: [facility] 12-21-2024 14:43-0400 Body height 182.[address] Duane Edouard MD Work Phone: [facility] 12-21-2024 14:43-0400 Body mass index (BMI) [Ratio] 40.9 kg/m2 Dr. Duane Edouard MD Work Phone: [facility] 12-21-2024 14:43-0400 Body weight [address] Dunae Edouard MD Work Phone: [facility] 11-11-2024 06:13-0400 Body mass index (BMI) [Ratio] 44.1 kg/m2 Dr. Duane Edouard MD Work Phone: [facility] 11-11-2024 06:13-0400 Body temperature 97.3 [degF] Dr. Duane Edouard MD Work Phone: 6(969)515-430902 [place] [address] 11-11-2024 06:13-0400 Body weight 135.[address] Duane Edouard MD Work Phone: 1(608)482-625002 [place] [address] 11-11-2024 06:13-0400 Diastolic blood pressure 98 mm[Hg] Dr. Duane Edouard MD Work Phone: 8(954)135-252715 [address] 11-11-2024 06:13-0400 Heart rate 86 /min Dr. Duane Edouard MD Work Phone: 5(174)335-077802 [place] [address] 11-11-2024 06:13-0400 Respiratory rate 16 /min Dr. Duane Edouard MD Work Phone: 5(800)152-471115 [address] 11-11-2024 06:13-0400 SaO2% (BldA) [Mass fraction] 91 % Dr. Duane Edouard MD Work Phone: 1(447)435-357802 [place] [address] 11-11-2024 06:13-0400 Systolic blood pressure 140 mm[Hg] Dr. Duane Edouard MD Work Phone: [facility] 08-05-2024 05:44-0400 Body height 175.[address] Duane Edouard MD Work Phone: 2(714)414-837802 [place] [address] 08-05-2024 05:44-0400 Body mass index (BMI) [Ratio] 43.8 kg/m2 Dr. Duane Edouard MD Work Phone: [facility] 08-05-2024 05:44-0400 Body temperature 95.6 [degF] Dr. Duane Edouard MD Work Phone: 5(813)477-984002 [place] [address] 08-05-2024 05:44-0400 Body weight 134.[address] Duane Edouard MD Work Phone: [facility] 08-05-2024 05:44-0400 Diastolic blood pressure 73 mm[Hg] Dr. Duane Edouard MD Work Phone: [facility] 08-05-2024 05:44-0400 Heart rate 61 /min Dr. Duane Edouard MD Work Phone: [facility] 08-05-2024 05:44-0400 Respiratory rate 20 /min Dr. Duane Edouard MD Work Phone: [facility] 08-05-2024 05:44-0400 SaO2% (BldA) [Mass fraction] 95 % Dr. Duane Edouard MD Work Phone: [facility] 08-05-2024 05:44-0400 Systolic blood pressure 117 mm[Hg] Dr. Duane Edouard MD Work Phone: 4(560)460-361002 [place] [address] 06-04-2022 16:27-0500 Body height 175.[address] Duane Edouard Work Phone: 8(663)415-888802 [place] [address] 06-04-2022 16:27-0500 Body mass index (BMI) [Ratio] 37.2 kg/m2 Dr. Duane Edouard Work Phone: [facility] 06-04-2022 16:27-0500 Body temperature 98.5 [degF] Dr. Duane Edouard Work Phone: [facility] 06-04-2022 16:27-0500 Body weight 114.[address] Duane Edouard Work Phone: [facility] 06-04-2022 16:27-0500 Diastolic blood pressure 86 mm[Hg] Dr. Duane Edouard Work Phone: [facility] 06-04-2022 16:27-0500 Heart rate 67 /min Dr. Duane Edouard Work Phone: [facility] 06-04-2022 16:27-0500 Respiratory rate 14 /min Dr. Duane Edouard Work Phone: [facility] 06-04-2022 16:27-0500 SaO2% (BldA) [Mass fraction] 97 % Dr. Duane Edouard Work Phone: [facility] 06-04-2022 16:27-0500 Systolic blood pressure 132 mm[Hg] Dr. Duane Edouard Work Phone: [facility] Encounters Encounter Date Encounter Type Care Provider Facility Start: 02-03-2025 ambulatory [facility] Facility:[facility] Start: 12-21-2024 End: 12-21-2024 Emergency department patient visit Dr. Duane Edouard MD Work Phone: -Emergency Department Work Phone: Start: 11-11-2024 End: 11-11-2024 Patient encounter procedure STUNNER Kait Conde -[facility] Work Phone: Start: 11-11-2024 End: 11-11-[address] Duane Edouard MD Work Phone: [facility] Work Phone: Start: 08-18-2024 End: 08-18-[address] Duane Edouard MD Work Phone: [facility] Work Phone: Start: 08-18-2024 End: 08-18-2024 Patient encounter procedure STUNNER Kait Conde -Sleep Lab Work Phone: Start: 08-18-2024 End: 08-18-2024 ambulatory Kait Conde Facility:[facility] Start: 08-05-2024 End: 08-05-2024 Patient encounter procedure STUNNER Kait Conde -[facility] Work Phone: Start: 08-05-2024 End: 08-05-2024 ambulatory Kait Conde Facility:[facility] Start: 06-16-2024 End: 06-16-[address] Duane Edouard MD -Sleep Lab Work Phone: Start: 06-16-2024 End: 06-16-2024 ambulatory Duane Edouard Facility:[facility] Start: 06-03-2024 End: 06-03-[address] Duane Edouard MD -Ultrasound, [facility] Work Phone: Start: 06-03-2024 End: 06-03-[address] [facility] Facility:[facility] Start: 04-29-2024 End: 04-29-[address] Duane Edouard MD -Laboratory Work Phone: Start: 04-29-2024 End: 04-29-2024 ambulatory [facility] Facility:[facility] Start: 02-19-2024 End: 02-19-2024 ambulatory [facility] Facility:[facility] Start: 10-23-2023 End: 10-23-2023 ambulatory [facility] Facility:[facility] Start: 04-22-2023 End: 04-22-[address] [facility] Work Phone: Start: 04-22-2023 End: 04-22-[address] [facility]-Laboratory, Phy Office 3rd Flr Start: 08-21-2022 End: 08-21-[address] Duane Edouard Work Phone: [facility] Work Phone: Start: 08-21-2022 End: 08-21-[address] Duane Edouard Work Phone: [facility] Start: 06-04-2022 End: 06-04-[address] Duane Edouard Work Phone: [facility] Procedures Date Procedure Procedure Detail Performing Clinician Start: 06-03-2024 Ultrasound elastogra phy of liver Dr. Duane Edouard MD Work Phone: Plan of Treatment Date Care Activity Detail Author Start: 12-21-2024 [facility] Patient Education ED Dog Bite [facility] Work Phone: Immunizations Immunization Date Immunization Notes Care Provider Ezra beasley 12-21-2024 tetanus toxoid, redu peggy diphtheria toxoid, and acellular pertussis vaccine, adsorbed Dr. Duane Edouard MD Work Phone: [facility] 05-30-2016 tetanus and diphther ia toxoids, adsorbed, preservative free, for adult use (2 Lf of tetanus toxoid and 2 Lf of diphtheria toxoid) Dr. Duaen Edouard Work Phone: [facility] Payers Date Payer Category Payer Self-pay [id number] 2014 Medicaid [id number] Unknown [id number] 2.16.8 [id number] Unknown [id number] 2.16.8 [id number] Unknown [id number] 2.16.8 [id number] Unknown [id number] 2.16.8 [id number] Unknown [id number] 2.16.8 [id number] Unknown [id number] 2.16.8 [id number] Unknown [id number] 2.16.8 [id number] Unknown [id number] 2.16.8 [id number] Social History Date Type Detail Facility Start: 06-04-2022 End: 06-04-2022 Tobacco smoking status NHIS Unknown if ever smoked [facility] Start: 04-16-2020 - [facility] Start: 1985 Sex Assigned At Male [facility] Start: 08-05-2024 End: 12-21-2024 Tobacco smoking status NHIS Never smoked tobacco (finding) [facility] Start: 08-23-2024 Sex Male (finding) [facility] Discharge summary 12-21-2024 Note Date & Type Note Facility 12-21-[address] [facility] Discharge summary 12-21-2024 Note Date & Type Note Facility 12-21-2024 Discharge summary Note Date/Time December 21, 2024 3:25pm [facility] Medical Records Department [address] [place] [address] Emergency Department Summary 12/21/24 MR#: [id number] Acct: [id number] Name: SEAN LAGUERRE Rep #:[id number] : 1985 39 From: Lalo hines DO PCP: Dr. Duane Edouard MD Status:DEP E R Location: ED HPI History of Present Illness Chief Complaint: Bite Narrative Narrative: Chief complaint and HPI: Left hand dog bite. 39-year-old male with past medicalhistory of autism, anxiety, depression presents for evaluation of dog bite to the left hand. Dog belonged to a friend. Dog is believed to be vaccinated. Denies any pain to the hand. Unknown tetanus. Patient has a guardian. Denies injury elsewhere. Review of systems: See HPI Medications: As listed on the chart Allergies: As listed on the chart PFSH: Per chart Vital signs: As listed on the chart. Reviewed. Physical exam: Gen: A&O x3, NAD Head: Normocephalic, atraumatic Eyes: No sclera icterus, conjunctiva clear ENT: Moist mucous membranes CV: Regular rate Resp: Nonlabored respiration Musc: Full ROM of the left upper extremity including wrist/hand/fingers, radial pulse +2, good capillary refill, sensation intact, compartments soft, 2 cm V-shaped laceration to the dorsal aspect of the middle left hand-subcutaneous fat visualized Skin: Warm, dry Neuro: Alert, oriented, grossly intact, sensation intact Psych: Cooperative, appropriate mood and affect [facility] Medical History Other cirrhosis of liver Leg cramp Snoring Other hyperlipidemia GERD (gastroesophageal reflux disease) BMI 40.0-44.9, adult AA (alcohol abuse) Fatty liver Other fatigue Alcohol use Major depressive disorder, recurrent episode, in full remission Recurrent hypersomnia Hepatic fibrosis Essential (primary) hypertension Hyperlipidemia ADHD BMI 45.0-49.9, adult Contact with and (suspected) exposure to other viral communicable diseases URI (upper respiratory infection) Home Medications ?Medication ?Instructions ?Recorded ?Last Taken ?Type sertraline 100 mg tablet (Zoloft) 100 mg PO DAILY 11/0805/30/16 History metoprolol tartrate 75 mg tablet 75 mg PO BID 07/29/24 Unknown History tirzepatide (weight loss) 2.5 2.5 mg subcut QWEEK 12/16 Unknown History mg/0.5 mL subcutaneous pen injector (Zepbound) methylphenidate HCl 40 mg biphasic 40 mg PO DAILY 10/24 Unknown History 50-50 capsule,extended release (Ritalin LA) methylphenidate HCl 54 mg 54 mg PO QAM 11/11/24 Unknow n History tablet,extended release 24 hr amoxicillin 875 mg-potassium 1 tab PO BID 7 days #14 t abs 12/21/24 Unknown Rx clavulanate 125 mg tablet Allergy/AdvReac Type Severity Reaction Status Date / Time No Known Allergies Allergy Verified 12/21/24 14:43 Family History Mother Sleep apnea Surgical History History of appendectomy Social History Smoking Status: Never smoker alcohol intake: current alcohol intake frequency: holidays/special occasions only EXAM Physical Exam Const Vital Signs: 12/21/24 14:43 Temperature 98.1 F Temperature Source Oral Pulse Rate 80 Respiratory Rate 16 Blood Pressure 161/95 H Blood Pressure Mean 117 Pulse Ox 97 Oxygen Delivery Method Room Air MDM MDM MDM Narrative Medical decision making narrative: 39-year-old male with past medical history of autism, anxiety, depression presents for evaluation of dog bite to the left hand. Dog belonged to a friend. Dog is believed to be vaccinated. Denies any pain to the hand. Unknown tetanus. Patient has a guardian. We were unable to contact the guardian however we did get consent from the custodial to treat the patient. He consented as well. Tetanus updated. Laceration was repaired and patient tolerated this well. Given patient has no pain or deformity to the hand, I do not think any x-rays are needed. Patient was given education on monitoring for signs of infection and suture remover. Will be placed on Augmentin for antibiotic prophylaxis. He confirmed understanding of the plan. Laceration Repair Indication: Laceration Location: 2 cm V-shaped laceration to the left hand Consent: Risks, benefits, and alternatives discussed with patient and verbal consent was obtained from patient as well as over the phone via nursing. Procedure: The area was prepped and draped in the usual sterile fashion. Local anesthesia was achieved using 1% Lidocaine with epinephrine. The wound was copiously irrigated and cleaned. 6 sutures were placed using 4-0 Ethilon in an interrupted fashion. The estimated blood loss was minimal. A dressing was applied to the area with Bacitracin. The patient tolerated the procedure well without complications. Foreign Material: None Debridement: None Follow-up: Anticipatory guidance, as well as standard post-procedure care, was explained. Return precautions are given. Follow-up visit set for suture removal and evaluation of the laceration. Impression: 1 Dog bite to the left hand 2. 2 cm left hand laceration, suture repair Discharge Plan Triage Chief Complaint: Bite ED Provider: Lalo Garcia Dx/Rx/DC Orders Clinical Impression: Dog bite Instructions: ED Dog Bite Prescriptions: New amoxicillin-pot clavulanate 875-125 mg tablet 1 tab PO BID 7 Days Qty: 14 0RF No Action metoprolol tartrate 75 mg tablet 75 mg PO BID Zepbound 2.5 mg/0.5 mL pen injector 2.5 mg subcut QWEEK Rx Instructions: for 4 weeks methylphenidate HCl 54 mg tablet extended release 24hr 54 mg PO QAM sertraline [Zoloft] 100 MG tablet 100 mg PO DAILY methylphenidate HCl [Ritalin LA] 40 mg capsule,ER biphasic 50-50 40 mg PO DAILY Primary Care Provider: Duane Edouard Chi Referrals: Dunae Edouard Chi, MD [Primary Care Provider] - 3-5 Days Activity Restrictions/Additional Instructions: Okay to shower in 24 hours. No lakes, moe, hot tubs, swimming pools, soakingin the bathtub until fully healed. Monitor for signs of infection. Take all ofyour antibiotics. Sutures need to be removed in 7 to 10 days. Print Language: Sinhala Disposition Disposition: Home, Self Care What to do if you have Problems For any increased pain, shortness of breath, bleeding, nausea or vomiting, chestpain, or any unexpected problems, contact your Primary Care Provider. Call [facility] ([phone]) or report to the closest Emergency Room. Call 911 if necessary. 12/21/24 1525 <Electronically signed by Lalo Garcia DO> Cosigner Signature (if applicable): CC: Dr. Duane Edouard MD ~ Signed [facility] Work Phone: Hospital Discharge instructions 12-21-2024 Note Date & Type Note Facility 12-21-2024 Hospital Discharg e instructions Additional Instructions Okay to shower in 24 hours. No lakes, moe, hot tubs, swimming pools, soaking in the bathtub until fully healed. Monitor for signs of infection. Take all of your antibiotics. Sutures need to be removed in [address] [facility] Work Phone: Evaluation note 11-11-2024 Note Date & Type Note Facility 11-11-2024 Evaluation note Diagnosis Onset Date Resolution Obstructive sleep apnea chronic J une 2024 10:09am [facility] Work Phone: Evaluation note 08-05-2024 Note Date & Type Note Facility 08-05-2024 Evaluation note Diagnosis Onset Date Resolution Obstructive sleep apnea acute M arch 2024 10:07am [facility] Work Phone: Evaluation note 08-05-2024 Note Date & Type Note Facility 08-05-2024 Evaluation note Diagnosis Onset Date Resolution Obstructive sleep apnea acute M arch 2024 10:07am Obstructive sleep apnea acute J une 2024 10:09am [facility] Work Phone: Evaluation note Note Date & Type Note Facility Evaluation note Diagnosis Onset Date Contact with and (suspected) exposure to other viral communicable diseases acute URI (upper respiratory infection) acute [facility] Work Phone: Evaluation note Note Date & Type Note Facility Evaluation note No assessment information availa ble [facility] Work Phone: Reason for referral (narrative) Note Date & Type Note Facility Reason for referral (narrative) No reason for referral information available [facility] Work Phone: Chief Complaint and Reason for Visit Chief Complaint VOMITING/COVID/FLU T EST Reason for Visit Contact with and (meza spected) exposure to other viral communicable diseases URI (upper respiratory infection) Chief Complaint Admit Date CIRRHOSIS June 03, 2024 8 :18am SNORING; RECURRENT HYPERSOMNIA May 262024 7:54pm Sleep problems August 05, 2024 10: 07am severe ADY with hypoxemia August 18 8:00pm Reason for Visit Admit Date Obstructive sleep apnea August 05, 2024 10:07am Chief Complaint Admit Date Sleep problems August 05, 2024 10: 07am severe ADY with hypoxemia August 18 8:00pm 3 M FU November 11, 2024 10:0 9am Reason for Visit Admit Date Obstructive sleep apnea August 05, 2024 10:07am Obstructive sleep apnea November 11, 2024 10:09am Chief Complaint Admit Date 3 M FU November 11, 2024 10:0 9am DOG BITE December 21, 2024 2:42 pm Reason for Visit Admit Date Obstructive sleep apnea November 11, 2024 10:09am Advance Directives No Advanced Directives Records Found Advance Directive Response Recorded Date/ Time Advance Directives No May 30, 2016 4:49pm Living Will No April 16 020 7:57pm Power of Mechanical Fitter No April 16, 2020 7:57pm Advance Directive Response Recorded Date/ Time Advance Directives No May 30, 2016 3:49pm Living Will No April 16 020 6:57pm Power of Mechanical Fitter No April 16, 2020 6:57pm Advance Directive Response Recorded Date/ Time Advance Directives No May 30, 2016 4:49pm Advance Directive Response Recorded Date/ Time Do you have a Healthcare Power of Mechanical Fitter? No December 21, 2024 2:45pm Advance Directives No May 30, 2016 4:49pm Summary Purpose Family History No Family History Records Found Relationship Condition Age at Onset Recorded Date/T cristin mother Sleep apnea Unknown Additional Source Comments Care Teams (unrecognized sec tion and content) Team Status: Active Member Role Status Dates Dr. Duane Edouard MD Family Provider Active Dr. Duane Edouard MD Primary Care Provider Active Team Status: Inactive Member Role Status Dates Dr. Duane Edouard MD Primary Care Provider, Referring Provider Active Marty Hammond PA, PA Attending Provider Active Team Status: Inactive Member Role Status Dates Dr. Duane Edouard MD Primary Care Provider Active Dr. Cecile Schofield MD Attending Provider, Referring Pro vider Active Team Status: Inactive Member Role Status Dates Dr. Duane Edouard MD Primary Care Provider, Attending Provider Active Team Status: Active Member Role Status Dates Dr. Duane Edouard MD Primary Care Provider Active Team Status: Inactive Member Role Status Dates Dr. Duane Edouard MD Primary Care Provider Active Start: April 29, 2024 End: April 29, 2024 Dr. Duane Edouard MD Attending Provider Active Start: April 29, 2024 End: April 29, 2024 Dr. Duane Edouard MD Referring Provider Active Start: April 29, 2024 End: April 29, 2024 Team Status: Inactive Member Role Status Dates Dr. Duane Edouard MD Primary Care Provider Active Start: June 03, 2024 End: June 03, 2024 Dr. Duane Edouard MD Attending Provider Active Start: June 03, 2024 End: June 03, 2024 Dr. Duane Edouard MD Referring Provider Active Start: June 03, 2024 End: June 03, 2024 Team Status: Inactive Member Role Status Dates Dr. Duane Edouard MD Primary Care Provider Active Start: June 16, 2024 End: June 16, 2024 Dr. Duane Edouard MD Attending Provider Active Start: June 16, 2024 End: June 16, 2024 Dr. Duane dEouard MD Referring Provider Active Start: June 16, 2024 End: June 16, 2024 Team Status: Inactive Member Role Status Dates Dr. Duane Edouard MD Primary Care Provider Active Start: August 05, 2024 End: August 05, 2024 Dr. Duane Edouard MD Referring Provider Active Start: August 05, 2024 End: August 05, 2024 JAVIER Estes Attending Provider Active Start: August 05, 2024 End: August 05, 2024 Team Status: Inactive Member Role Status Dates Dr. Duane Edouard MD Primary Care Provider Active Start: August 18, 2024 End: August 18, 2024 JAVIER Estes Attending Provider Active Start: August 18, 2024 End: August 18, 2024 JAVIER Estes Referring Provider Active Start: August 18, 2024 End: August 18, 2024 Team Status: Inactive Member Role Status Dates Dr. Duane Edouard MD Primary Care Provider Active Start: November 11, 2024 End: November 11, 2024 Dr. Duane Edouard MD Referring Provider Active Start: November 11, 2024 End: November 11, 2024 JAVIER Estes Attending Provider Active Start: November 11, 2024 End: November 11, 2024 Team Status: Active Member Role/Relationship Status Dates Dr. Duane Edouard MD Primary Care Provider Active Team Status: Inactive Member Role/Relationship Status Dates Dr. Duane Edouard MD Primary Care Provider Active Start: November 11, 2024 End: November 11, 2024 Dr. Duane Edouard MD Referring Provider Active Start: November 11, 2024 End: November 11, 2024 JAVIER Estes Attending Provider Active Start: November 11, 2024 End: November 11, 2024 Team Status: Inactive Member Role/Relationship Status Dates Dr. Duane Edouard MD Primary Care Provider Active Start: December 21, 2024 End: December 21, 2024 Dr. Lalo Garcia DO Emergency Provider Activ e Start: December 21, 2024 End: December 21, 2024 Goals (unrecognized section and content) Goals may be documented in a n alternate sectionGoals may be documented in an alternate sectionGoals may be documented in an alternate sectionGoals may be documented in an alternate sectionGoals may be documented in an alternate section (unrecognized sect ion and content) No Status Records FoundNo Status Records Found INFORMATION SOURCE (unrecogn ized section and content) DATE CREATED AUTHOR 02/20/2024 [facility] DATE CREATED AUTHOR AUTHOR'S GARETT ARIAS 02/05/2025 [facility] FOR RECORDS PERTAINING TO PATIENTS WHO ARE OR HAVE BEEN ENROLLED IN A CHEMICAL DEPENDENCY/SUBSTANCEABUSE PROGRAM, SOME INFORMATION MAY BE OMITTED. This clinical summary was aggregated from multiple sources. Caution should be exercised in using it in the provision of clinical care. This summary normalizes information from multiple sources, and as a consequence, information in this document may materially change the coding, format and clinical context of patient data. In addition, data may be omitted in some cases. CLINICAL DECISIONS SHOULD BE BASED ON THE PRIMARY CLINICAL RECORDS. [facility]. provides no warranty or guarantee of the accuracy or completeness of information in this document.
[2025-02-10] MEDS: Ampicillin/Sulbactam 3 GM in 0.9% Normal Saline (100mL MB+) 100 ML IV (18:14)
--- NOTE | 2025-02-10 18:25 | CT_ITS ---
PROCEDURE: CT SINUS/FACIAL BONE WITH CONTRAST 02/10/2025 REASON FOR EXAM: LEFT FACIAL SWELLING TECHNIQUE: Procedure Code: CTSIW Modality: CT Procedure: SINUS/FACIAL BONE WITH CONTRAS Coronal and Sagittal reconstruction series were provided. CONTRAST: Isovue 370 VOLUME: 92 mL One or more dose reduction techniques were used (e.g., Automated exposure control, adjustment of the mA and/or kV according to patient size, use of iterative reconstruction technique). RADIATION DOSE SUMMARY: CTDlvol: 29.38 mGy DLP: 789.87 mGycm COMPARISON: None. FINDINGS: Odontogenic disease mainly involving the left anterior maxillary teeth, with periapical lucency. In the overlying anterior left premaxillary facial soft tissues inferior to the left orbit, there is a small roughly 8 mm subperiosteal abscess, with surrounding subcutaneous edema and inflammatory fat stranding, which extends to the inferior left preseptal periorbital soft tissues. Intraorbital contents are unremarkable. No infiltration of the retrobulbar fat planes. Peripheral mucosal thickening in the left maxillary sinus. Remainder of the paranasal sinuses and bilateral mastoid air cells are well-aerated. No air-fluid levels. CT/Sinus/Facial Bone WITH Contras IMPRESSION: Odontogenic disease, notably involving the anterior left maxillary teeth with p eriapical lucency. Overlying small 8 mm subperiosteal abscess in the left premaxillary facial soft tissues, with surrou nding subcutaneous edema and inflammatory fat stranding. Reading Location: [facility]
[2025-02-10 18:27] LABS: Hematocrit 48.7 % (40-54); Hemoglobin 16.6 g/dL (13.0-16.5); Immature Granulocytes Count 0.080 X10^3/uL (0.0-0.0); Mean Corp Hgb Conc 34.1 g/dL (32-36); Mean Corpuscular Volume 88.2 fL (80-94); Mean Platelet Vol. 11.5 fl (6.2-12.0); NRBC Flagged by Analyzer 0 % (0-5); Platelet Count 121 K/mm3 (150-450); RBC Distribution Width CV 12.9 % (11.6-14.6); RBC Distribution Width SD 42.1 fl (35.1-43.9); Red Blood Count 5.52 M/mm3 (4.6-6.2); White Blood Count 12.0 K/mm3 (4.4-11.0)
[2025-02-10 19:00] VITALS: BP 126/85; PULSE 99; RESP 18; O2SAT 91
[2025-02-10 19:41] LABS: Anion Gap 12 (5-15); BUN 13 mg/dL (4-19); BUN/Creat Ratio 12.8 RATIO (10-20); Calcium,Total 9.7 mg/dL (7.6-11.0); Carbon Dioxide 23.9 mmol/L (21.0-32.0); Chloride 103 mmol/L (98-108); Estimated Creatinine Clearance 139.36 ml/min (50-250); Glucose 110 mg/dL (70-99); Potassium 4.3 mmol/L (3.3-5.1)
--- NOTE | 2025-02-10 19:51 | ED.RN ---
CT called about CT read. Reply was it is in dictation right now.
[2025-02-10 21:00] VITALS: BP 123/88; PULSE 81; RESP 20; O2SAT 94
--- NOTE | 2025-02-10 22:40 | EDS_ITS ---
HPI History of Present Illness Chief Complaint: Dental Informant: patient and friend Narrative Narrative: Patient is a 39-year-old male with history of CKD 2, alcoholism, ADHD and ADHD presenting for increased left frontal dental pain for the past few days as well as increased left-sided facial swelling and now around his eye. Last took Tylenol this morning. Did not take his other medications including his metoprolol this morning. Has had some chills but is not sure if he had a fever. Denies any difficulty swallowing. Is having sinus pain on the left. Denies any ear pain. Denies any nausea and vomiting. No other complaints or concerns at this time. Notes he does have a dentist appointment but is not till March [facility] Medical History Morbid obesity CKD (chronic kidney disease), stage II ADY treated with BiPAP Other cirrhosis of liver GERD (gastroesophageal reflux disease) BMI 40.0-44.9, adult AA (alcohol abuse) Major depressive disorder, recurrent episode, in full remission Hepatic fibrosis Essential (primary) hypertension ADHD BMI 45.0-49.9, adult Home Medications ?Medication ?Instructions ?Recorded ?Last Taken ?Type sertraline 100 mg tablet (Zoloft) 100 mg PO DAILY 11/0805/30/16 History metoprolol tartrate 75 mg tablet 75 mg PO BID 07/29/24 Unknown History tirzepatide (weight loss) 2.5 2.5 mg subcut QWEEK 12/16 Unknown History mg/0.5 mL subcutaneous pen injector (Zepbound) methylphenidate HCl 40 mg biphasic 40 mg PO DAILY 10/24 Unknown History 50-50 capsule,extended release (Ritalin LA) methylphenidate HCl 54 mg 54 mg PO QAM 11/11/24 Unknow n History tablet,extended release 24 hr amoxicillin 875 mg-potassium 1 tab PO BID 7 days #14 t abs 12/21/24 Unknown Rx clavulanate 125 mg tablet amoxicillin 875 mg-potassium 1 tab PO Q12H #20 tabs Unknown Rx clavulanate 125 mg tablet ibuprofen 600 mg tablet 600 mg PO Q6H PRN fever or p ain 02/10/25 Unknown Rx #20 tabs Allergy/AdvReac Type Severity Reaction Status Date / Time No Known Allergies Allergy Verified 02/10/25 15:09 Family History Mother Sleep apnea Surgical History History of appendectomy Social History Smoking Status: Never smoker alcohol intake: current alcohol intake frequency: holidays/special occasions only substance use type: does not use ROS ROS ED Constitutional Constitutional ED: Reports chills; Denies fever(s) Eyes Eyes: Denies blurry vision or change in vision ENT ENT ED: Reports other Details: Dental pain, left-sided facial swelling Respiratory/Chest Respiratory/Chest: Denies cough or dyspnea Gastrointestinal Gastrointestinal: Denies abdominal pain, nausea or vomiting Integumentary Reports rash Neurologic Neurologic: Reports headache(s); Denies weakness EXAM Physical Exam Const Vital Signs: 02/10/25 15:07 02/10/25 15:09 02/10/25 17:06 Temperature 99.6 F H 99.6 F H Temperature Source Oral Oral Pulse Rate 128 H 113 H 99 Respiratory Rate 18 25 H Blood Pressure 133/99 H 151/104 H 177/97 H Blood Pressure Mean 110 119 123 Pulse Ox 95 96 92 Oxygen Delivery Method Room Air Room Air Room Air 02/10/25 19:00 02/10/25 21:00 02/10/25 22:52 Temperature Temperature Source Pulse Rate 99 81 Respiratory Rate 18 20 H Blood Pressure 126/85 H 123/88 H 116/79 Blood Pressure Mean 98 99 91 Pulse Ox 91 94 Oxygen Delivery Method Room Air Room Air 02/10/25 22:52 Temperature 99.6 F H Temperature Source Pulse Rate 81 Respiratory Rate 20 H Blood Pressure 116/79 Blood Pressure Mean 91 Pulse Ox 94 Oxygen Delivery Method Positive well nourished and well developed General Appearance ED: well developed and NAD HEENT Reports TM's clear HEENT Narrative: Normocephalic atraumatic. Soft tissue swelling over the left cheek with associated erythema and warmth. Swelling noted of the left buccal surfaces. Poor dentition with multiple missing teeth. Tooth #9 is cracked and decayed and appears to be the nidus of infection. No obvious abscess for drainage is present at this time. No trismus. Sublingual mucosa soft with no elevation of the tongue. Normal oropharynx. Tympanic Membrane ED: Yes TM's clear Teeth and Gingiva: abnormal tooth and associated gingiva and caries Eyes PERRL and EOMs intact bilaterally Eyes Narrative: Mild conjunctival injection noted of the left eye. Normal eye movement. Mild swelling noted of the upper and lower eyelids. Neck no lymphadenopathy and supple Chest Wall inspection of chest normal Resp normal respiratory effort Cardio Cardio Narrative: Tachycardic, regular rhythm. No murmurs GI normal to inspection, nondistended, normoactive bowel sounds and non-tender Extremity normal to inspection Neuro oriented x3 Sensorium / Orientation: alert Motor Exam: general weakness Psych mental status grossly normal Skin Skin Narrative: Erythema to the left cheek area MDM MDM MDM Narrative Medical decision making narrative: Patient evaluated for left-sided facial swelling and pain with associated dental pain. Differential includes facial abscess, facial cellulitis, preseptal cellulitis, septal cellulitis and dental abscess. CT of the face obtained in addition to blood work. Patient is given dose of Unasyn in the emergency room. Patient does have a mild leukocytosis of 12.0. His lab works otherwise largely normal. He is not diabetic. CT of the face geovanna ws otogenic disease most notably involving anterior left maxillary teeth with periapical lucency and overlying small 8 mm super periosteal abscess with swelling of the soft tissue of the face and surrounding subcutaneous edema and inflammatory fat stranding. There is findings of a preseptal cellulitis but no ocular involvement. Case is discussed with OMFS at in [place], Dr. Stallings who is able to review the films. He states that is not uncommon to have reactive inflammation and cellulitis with a dental infection. States that the patient is not a diabetic can be given a dose of Unasyn in the emergency room. Also recommends giving a dose of 10 mg Decadron in the emergency room as well. Can be discharged home with Augmentin. He is given follow-up information for Dr. Fenton's office. Encouraged follow-up closely with his dentist if possible. Feels comfortable being discharged home. Feels the swelling is actually improved while in the emergency room. Is monitored for 7 hours does not have any worsening of his clinical exam and actually is improving. Lab Data Labs: Laboratory Results - last 24 hr 09/19/25 18:05 WBC 12.0 H RBC 5.52 Hgb 16.6 H Hct 48.7 MCV 88.2 MCH 30.1 MCHC 34.1 RDW Std Deviation 42.1 RDW Coeff of Pa 12.9 Plt Count 121 L MPV 11.5 Immature Gran % (Auto) 0.700 Neut % (Auto) 73.8 H Lymph % (Auto) 13.4 L [place] % (Auto) 11.3 H Eos % (Auto) 0.5 Baso % (Auto) 0.3 Absolute Neuts (auto) 8.8 H Absolute Lymphs (auto) 1.60 Nucleated RBC % 0 Sodium 139 Potassium 4.3 Chloride 103 Carbon Dioxide 23.9 Anion Gap 12 BUN 13 Creatinine 1.02 Estim Creat Clear Calc 139.36 Est GFR (MDRD) Non-Af 96 BUN/Creatinine Ratio 12.8 Glucose 110 H Calcium 9.7 Radiography Diagnostic Testing: Clinical Impression(s) from Imaging Studies Facial/Sinus 02/10/25 18:25 IMPRESSION: Odontogenic disease, notably involving the anterior left maxillary teeth with periapical lucency. Overlying small 8 mm subperiosteal abscess in the left premaxillary facial soft tissues, with surrounding subcutaneous edema and inflammatory fat stranding. Reading Location: [facility] Management Discussion w/another healthcare provider: Manager Cosmetic Discharge Plan Triage Chief Complaint: Dental ED Provider: Angelina Grider Dx/Rx/DC Orders Clinical Impression: Preseptal cellulitis of left eye, Abscess, dental Instructions: ED Dental Abscess Facial Cellulitis Prescriptions: New amoxicillin-pot clavulanate 875-125 mg tablet 1 tab PO Q12H Qty: 20 0RF ibuprofen 600 mg tablet 600 mg PO Q6H PRN (Reason: fever or pain) Qty: 20 0RF No Action metoprolol tartrate 75 mg tablet 75 mg PO BID Zepbound 2.5 mg/0.5 mL pen injector 2.5 mg subcut QWEEK Rx Instructions: for 4 weeks methylphenidate HCl 54 mg tablet extended release 24hr 54 mg PO QAM sertraline [Zoloft] 100 MG tablet 100 mg PO DAILY methylphenidate HCl [Ritalin LA] 40 mg capsule,ER biphasic 50-50 40 mg PO DAILY amoxicillin-pot clavulanate 875-125 mg tablet 1 tab PO BID 7 Days Qty: 14 0RF Primary Care Provider: Uvaldo Edouard Chi Referrals: Uvaldo Edouard Chi, MD [Primary Care Provider, Geriatrics] Activity Restrictions/Additional Instructions: Please follow-up with a dentist next week. Do not get into a local dentist we have been in contact with an oral maxillofacial surgeon in [place], Dr. Stallings. His office phone number is [phone]. They will see you. If you feel that you are worsening, develop further fevers especially after 24 to 48 hours of antibiotics, develop difficulty swallowing or worsening swelling of your eye/vision changes please immediately return to the emergency room. Your next dose of antibiotics is due tomorrow morning. Print Language: Hong Konger Disposition Disposition: Home, Self Care Discharge Date/Time: 02/10/25 23:05
[2025-02-10 22:52] VITALS: BP 116/79; PULSE 81; RESP 20; TEMP 37.6; O2SAT 94
== END 2025-02-10 23:05 | disposition home or self-care (01) ==
PROVIDERS: Emergency Provider Emergency Medicine; PCP Family Medicine Geriatric Medicine; Visit Provider Emergency Medicine
DX: L03.213 Periorbital cellulitis (principal); F10.20 Alcohol dependence, uncomplicated; E66.01 Morbid (severe) obesity due to excess calories; Z68.41 Body mass index [BMI] 40.0-44.9, adult; K04.7 Periapical abscess without sinus; K02.9 Dental caries, unspecified; K03.81 Cracked tooth; I12.9 Hypertensive chronic kidney disease with stage 1 through stage 4 chronic kidney disease, or unspecified chronic kidney disease; N18.2 Chronic kidney disease, stage 2 (mild); F90.9 Attention-deficit hyperactivity disorder, unspecified type; G47.33 Obstructive sleep apnea (adult) (pediatric); Z79.85 Long-term (current) use of injectable non-insulin antidiabetic drugs; Z79.899 Other long term (current) drug therapy
CPT/HCPCS: 70487; 80048; 85025; 96365; 96375; 96376; 99283; Q9967; A4216; J0295